=== PATIENT | female | born 1945 | race Hispanic/Latino ===

== ENCOUNTER → 2018-01-06 | Outpatient (CLI) | payer OTHER ==
[~2018-01-06] VITALS: Ht 152.4 cm; Wt 72.6 kg
[~2018-01-06] MED LIST: ACET1TAB25 PO; ALEN70TA47 PO; ASCO500C6 PO; ASPI-1197 PO; ATOR40TA71 PO; CYAN500 PO; CYCL30DR OU; DILT120T PO; FISH1CAP27 PO; FURO20TA4 PO; GABA-318 PO; HYDR12.530 PO; LOSA25TA21 PO; LOTE10DR OP; METF500T6 PO; METO25TA6 PO; MULT-1192 PO; NAPH15DR8 OU; NEO/5DRO4 OU; NITR0.4T50 SL; OMEG100T PO; OMEP20CA10 PO; REGADENOSON 0.4 MG/5 ML PF SYG IVP SCH; SOLI10TA PO
== END | disposition home or self-care (01) ==
LOC: SHCH 08:21
PROVIDERS: ATTEND Internal Medicine Cardiovascular Disease
DX: I25.10 Atherosclerotic heart disease of native coronary artery without angina pectoris (principal); R06.00 Dyspnea, unspecified
CPT/HCPCS: 78452; 93017; 96374; A9500 ×2; J2785

== ENCOUNTER 2018-02-27 05:58 | Day surgery (SDC) | payer OTHER ==
[2018-02-25 09:30] VITALS: BP 130/79
[2018-02-25 09:44] LABS: BASOPHILS % (AUTO) 0.5 % (0.0-5.0); EOSINOPHILS % (AUTO) 2.7 % (0.0-8.0); HEMATOCRIT 36.6 % (36-48); LYMPHOCYTES % (AUTO) 29.3 % (21.0-51.0); MEAN CORPUSCULAR HEMOGLOBIN 32.1 pg (27.0-33.0); MEAN CORPUSCULAR HGB CONC 34.2 g/dL (32.0-36.0); MEAN CORPUSCULAR VOLUME 93.9 fL (79-99); MONOCYTES % (AUTO) 7.4 % (3.0-13.0); NEUTROPHILS % (AUTO) 60.1 % (40.0-77.0); PLATELET COUNT (AUTO) 176 K/uL (130-400); RED CELL DISTRIBUTION WIDTH 13.7 % (11.0-15.5); WHITE BLOOD COUNT (AUTO) 6.4 K/uL (4.8-10.8)
[2018-02-25 09:49] LABS: APPEARANCE,URINE Clear (CLEAR); BILIRUBIN,URINE Negative (NEGATIVE); COLOR,URINE Dark Yellow (YELLOW); GLUCOSE, URINE (UA) Negative (NEGATIVE); KETONES,URINE Negative (NEGATIVE); LEUKOCYTE ESTERASE ,URINE Small (NEGATIVE); NITRATE,URINE Negative (NEGATIVE); OCCULT BLOOD,URINE Negative (NEGATIVE); PH,URINE 7.5 (5.0-8.0); PROTEIN,URINE Negative (NEGATIVE)
[2018-02-25 09:59] LABS: BACTERIA,URINE Rare /HPF (None Seen); SQUAMOUS EPITHELIAL CELL,UR Rare /HPF (0-2)
[2018-02-25 10:02] LABS: CREATININE 0.7 mg/dL (0.5-1.5); POTASSIUM 4.1 mmol/L (3.5-5.1)
[2018-02-25 10:08] LABS: INR 0.98 (0.85-1.15); PROTHROMBIN TIME 10.3 SEC (9.6-11.6)
[2018-02-27] VITALS (11 sets, daily range): BP systolic 93–142; BP diastolic 64–80
[~2018-02-27] VITALS: Ht 152.4 cm; Wt 70.7 kg
[~2018-02-27 05:58] MED LIST changes: -ACET1TAB25 PO; -HYDR12.530 PO; -LOTE10DR OP; -NAPH15DR8 OU; -NEO/5DRO4 OU; -NITR0.4T50 SL; -OMEG100T PO; -REGADENOSON 0.4 MG/5 ML PF SYG IVP SCH; -SOLI10TA PO
[2018-02-27] MEDS ORDERED: BIVALIRUDIN 250 MG/VIAL IV ONE (08:44)
[2018-02-27] MEDS ORDERED: LIDOCAINE HCL 2% 20ML ONE (08:45)
[2018-02-27] MEDS ORDERED: ISOVUE-370 50ML VIAL IV ONE (08:45)
[2018-02-27] MEDS ORDERED: HEPARIN SODIUM 1000UNIT/ML 10ML VIAL ONE (08:45)
[2018-02-27] MEDS ORDERED: IOPAMIDOL-370 100 ML VIAL IV ONE (08:45)
[2018-02-27] MEDS ORDERED: NITROGLYCERIN 5 MG/ML 10 ML VIAL IV ONE (08:45)
[2018-02-27] MEDS ORDERED: SODIUM CHLORIDE 0.9% 1000ML 1,000 ML IV SCH (10:01)
[2018-02-27] MEDS ORDERED: GLUCAGON 1MG KIT 1 MG ML IM PRN (10:15)
[2018-02-27] MEDS ORDERED: DEXTROSE 50%-WATER 50 ML DISP.SYRIN IV PRN (10:15)
== END 2018-02-27 16:15 | disposition home or self-care (01) ==
LOC: DAH 05:58
PROVIDERS: ATTEND Internal Medicine Cardiovascular Disease
DX: I25.10 Atherosclerotic heart disease of native coronary artery without angina pectoris (principal); M81.0 Age-related osteoporosis without current pathological fracture; I11.0 Hypertensive heart disease with heart failure; I50.32 Chronic diastolic (congestive) heart failure; E11.9 Type 2 diabetes mellitus without complications; E78.00 Pure hypercholesterolemia, unspecified; Z79.899 Other long term (current) drug therapy; Z90.710 Acquired absence of both cervix and uterus; Z98.890 Other specified postprocedural states; Z79.82 Long term (current) use of aspirin
CPT/HCPCS: 36415; 71045; 80048; 81001; 82948 ×2; 85025; 85610; 85730; 93005; 93458; A4606; C1760; C1894; J1644; J3490 ×2; Q9967 ×2; J0583

== ENCOUNTER 2019-02-26 09:03 | Day surgery (SDC) | payer OTHER ==
[2019-02-23 14:50] LABS: BASOPHILS % (AUTO) 0.7 % (0.0-5.0); EOSINOPHILS % (AUTO) 2.9 % (0.0-8.0); HEMATOCRIT 41.1 % (36-48); LYMPHOCYTES % (AUTO) 29.8 % (21.0-51.0); MEAN CORPUSCULAR HEMOGLOBIN 32.3 pg (27.0-33.0); MEAN CORPUSCULAR HGB CONC 33.6 g/dL (32.0-36.0); MEAN CORPUSCULAR VOLUME 96.1 fL (79-99); MONOCYTES % (AUTO) 7.4 % (3.0-13.0); NEUTROPHILS % (AUTO) 59.2 % (40.0-77.0); PLATELET COUNT (AUTO) 224 K/uL (130-400); RED BLOOD CELL COUNT(AUTO) 4.28 MIL/uL (4.00-5.50); RED CELL DISTRIBUTION WIDTH 13.9 % (11.0-15.5)
[2019-02-23 14:58] LABS: CREATININE 0.6 mg/dL (0.5-1.5); POTASSIUM 3.9 mmol/L (3.5-5.1)
[2019-02-23 15:00] VITALS: BP 138/90
[2019-02-23 15:13] LABS: APPEARANCE,URINE Clear (CLEAR); BILIRUBIN,URINE Negative (NEGATIVE); COLOR,URINE Yellow (YELLOW); GLUCOSE, URINE (UA) Negative (NEGATIVE); KETONES,URINE Negative (NEGATIVE); LEUKOCYTE ESTERASE ,URINE Trace (NEGATIVE); NITRATE,URINE Negative (NEGATIVE); OCCULT BLOOD,URINE Negative (NEGATIVE); PROTEIN,URINE Negative (NEGATIVE)
[2019-02-23 15:31] LABS: BACTERIA,URINE Few /HPF (None Seen); RBC,URINE 0-1 /HPF (0-1)
[2019-02-23 15:32] LABS: SQUAMOUS EPITHELIAL CELL,UR Few /HPF (0-2)
[2019-02-23 15:33] LABS: MUCUS,URINE Rare LPF (None Seen)
--- NOTE | 2019-02-23 15:50 | NUR ---
REPORTED ABNORMAL EKG TO DR. GIBBONS. NO NEW ORDERS OK TO PROCEED. PT HAS NO SIGNS OF SOB OR CHEST PAIN.
--- NOTE | 2019-02-25 11:24 | NUR ---
MED ORDER: SPOKE TO RAVIN AT DR. HOLLIDAY OFFICE, (NURSE OUT TO LUNCH) TO GIVE MESSAGE TO GIANFRANCO KEITH OR DR. STALEY OF BOTOX ORDER NEEDED ON PRE-OP ORDERS AND TO BE FAX TO [phone]. AWAITING ORDERS.
--- NOTE | 2019-02-25 11:31 | NUR ---
CONSULT: LEFT MESSAGE ON CELL PHONE REGARDING BOTOX ORDER PRE-OP. AWAITING CALL RETURN.
--- NOTE | 2019-02-25 12:01 | NUR ---
URINE CULTURE: FAXED UA AND UA C&S TO , FINGERS OFFICE. AWAITING CALL BACK.
--- NOTE | 2019-02-25 14:00 | NUR ---
labs as per Kourtney , Dr. Verduzco gave no further orders on urine reported earlier today.
[~2019-02-26] VITALS: Ht 152.4 cm; Wt 68.2 kg
[2019-02-26] VITALS (13 sets, daily range): BP systolic 102–127; BP diastolic 62–83
[2019-02-26] MEDS: CEFTRIAXONE SODIUM 1 GM IVP SCH ×2 (06:00→12:25)
[~2019-02-26 09:03] MED LIST changes: +ALEN70TA10 PO; -ALEN70TA47 PO; -ASCO500C6 PO; +BOTULINUM TOXIN TYPE A 100 UNITS/VIAL INJ SCH; +CALC600T12 PO; +CHOL100018 PO; -CYAN500 PO; -CYCL30DR OU; -FURO20TA4 PO; -GABA-318 PO; +GABA600T10 PO; +JOINT VITAMIN PO; -LOSA25TA21 PO; +METF-444 PO; -METF500T6 PO; -METO25TA6 PO; -MULT-1192 PO; +NITR0.4T50 SL; -OMEP20CA10 PO
[2019-02-26] MEDS ORDERED: SODIUM CHLORIDE 0.9% 1000ML 1,000 ML IV ONE (09:28)
[2019-02-26] MEDS ORDERED: LIDOCAINE PF 2% 5ML ABBOJECT ONE (12:14)
[2019-02-26] MEDS ORDERED: PROPOFOL 10 MG/ML 20ML VIAL IV ONE (12:14)
[2019-02-26] MEDS ORDERED: FENTANYL CITRATE PF 50 MCG/1 ML 2ML VIAL ONE (12:14)
[2019-02-26] MEDS ORDERED: EPHEDRINE SULFATE 50 MG/ML AMPULE ONE (12:35)
--- NOTE | 2019-02-26 13:55 | NUR ---
NEW RECEIVED PT FROM PACU, S/P CYSTOSCOPY WITH BOTOX INJECTIONS, PT AWAKE AND ALERT ,NO DISTRESS NOTED. DENIES ANY PAIN OR DISCOMFORTS.
--- NOTE | 2019-02-26 14:20 | NUR ---
DC DC INSTRUCTIONS GIVEN TO PT / DAUGHTER WITH RX, INSTRUCTED TO F/U WITH DR. STALEY.
--- NOTE | 2019-02-26 14:30 | NUR ---
DC PT DC HOME VIA WC ,NO DISTRESS NOTED. DENIES ANY PAIN OR DISCOMFORTS. ACCOMPANIED BY DAUGHTER
== END 2019-02-26 14:30 | disposition home or self-care (01) ==
LOC: DAH 09:03
PROVIDERS: ATTEND Urology
DX: N39.46 Mixed incontinence (principal); E11.9 Type 2 diabetes mellitus without complications; Z79.899 Other long term (current) drug therapy; Z98.890 Other specified postprocedural states
CPT/HCPCS: 36415; 52287; 80048; 81001; 82948 ×2; 85025; 87088; 93005; A4215; A4358; A4600; J0585; J0696; J2001; J2704; J3010; J3490; J7030; J7120

== ENCOUNTER 2019-03-27 20:34 | Emergency (ER) | payer OTHER ==
[~2019-03-27 20:34] MED LIST changes: -BOTULINUM TOXIN TYPE A 100 UNITS/VIAL INJ SCH
[2019-03-27] MEDS ORDERED: TETANUS/DIPHTHERIA TOXOID [ADULT] 0.5 ML VIAL IM ONE (21:18)
[2019-03-27] MEDS ORDERED: OCTYL 2-CYANOACRYLATE 1 EACH TP ONE (21:22)
[2019-03-27 21:25] LABS: EOSINOPHILS % (AUTO) 4.6 % (0.0-8.0); HEMATOCRIT 39.6 % (36-48); LYMPHOCYTES % (AUTO) 38.2 % (21.0-51.0); MEAN CORPUSCULAR HEMOGLOBIN 32.6 pg (27.0-33.0); MEAN CORPUSCULAR HGB CONC 34.2 g/dL (32.0-36.0); MEAN CORPUSCULAR VOLUME 95.1 fL (79-99); MONOCYTES % (AUTO) 8.7 % (3.0-13.0); NEUTROPHILS % (AUTO) 47.5 % (40.0-77.0); NUCLEATED RED BLOOD CELLS 0.1 % (0.0-0.19); PLATELET COUNT (AUTO) 162 K/uL (130-400); RED BLOOD CELL COUNT(AUTO) 4.16 MIL/uL (4.00-5.50); RED CELL DISTRIBUTION WIDTH 13.6 % (11.0-15.5); WHITE BLOOD COUNT (AUTO) 4.3 K/uL (4.8-10.8)
[2019-03-27 21:36] LABS: CREATININE 0.7 mg/dL (0.5-1.5); POTASSIUM 4.3 mmol/L (3.5-5.1)
[2019-03-27 21:38] LABS: INR 0.99 (0.85-1.15); PARTIAL THROMBOPLASTIN TIME 27.3 SEC (26.3-35.5); PROTHROMBIN TIME 10.4 SEC (9.6-11.6)
[2019-03-27 21:41] LABS: ALBUMIN 3.9 g/dL (3.5-5.0); BILIRUBIN,TOTAL 1.1 mg/dL (0.2-1.0)
[2019-03-27 22:12] LABS: APPEARANCE,URINE Clear (CLEAR); BILIRUBIN,URINE Negative (NEGATIVE); COLOR,URINE Yellow (YELLOW); GLUCOSE, URINE (UA) Negative (NEGATIVE); KETONES,URINE Negative (NEGATIVE); LEUKOCYTE ESTERASE ,URINE Moderate (NEGATIVE); NITRATE,URINE Positive (NEGATIVE); OCCULT BLOOD,URINE Negative (NEGATIVE); PH,URINE 7.5 (5.0-8.0); PROTEIN,URINE Negative (NEGATIVE); UROBILINOGEN,URINE 0.2 mg/dL (0.2-1.0)
[2019-03-27 22:41] LABS: BACTERIA,URINE Many /HPF (None Seen); RBC,URINE 0-1 /HPF (0-1); SQUAMOUS EPITHELIAL CELL,UR 0-2 /HPF (0-2)
== END 2019-03-28 00:05 | disposition home or self-care (01) ==
LOC: EDH 20:34
DX: S01.112A Laceration without foreign body of left eyelid and periocular area, initial encounter (principal); M54.2 Cervicalgia; E11.9 Type 2 diabetes mellitus without complications; I10 Essential (primary) hypertension; E78.00 Pure hypercholesterolemia, unspecified; M81.0 Age-related osteoporosis without current pathological fracture; W18.39XA Other fall on same level, initial encounter; Y93.01 Activity, walking, marching and hiking; Y92.89 Other specified places as the place of occurrence of the external cause; Y99.8 Other external cause status
CPT/HCPCS: 12011; 36415; 70450; 70486; 71045; 72125; 80053; 81001; 82550; 84484; 85025; 85610; 85730; 90471; 90714; 93005

== ENCOUNTER → 2019-09-22 | Outpatient (CLI) | payer OTHER ==
[~2019-09-22] MED LIST changes: +IOHEXOL-350 50ML VIAL IV ONE
== END | disposition home or self-care (01) ==
LOC: RAH 08:09
PROVIDERS: ATTEND Internal Medicine Gastroenterology
DX: K42.9 Umbilical hernia without obstruction or gangrene (principal); I87.8 Other specified disorders of veins; I70.0 Atherosclerosis of aorta; I25.10 Atherosclerotic heart disease of native coronary artery without angina pectoris; I51.7 Cardiomegaly; M43.17 Spondylolisthesis, lumbosacral region; M47.815 Spondylosis without myelopathy or radiculopathy, thoracolumbar region; M41.86 Other forms of scoliosis, lumbar region; Z90.49 Acquired absence of other specified parts of digestive tract; Z90.710 Acquired absence of both cervix and uterus
CPT/HCPCS: 74178; Q9967 ×2

== ENCOUNTER → 2019-11-02 | Outpatient (CLI) | payer OTHER ==
[~2019-11-02] MED LIST changes: -IOHEXOL-350 50ML VIAL IV ONE
== END | disposition home or self-care (01) ==
LOC: RAH 13:23
PROVIDERS: ATTEND Family Medicine
DX: Z12.31 Encounter for screening mammogram for malignant neoplasm of breast (principal)
CPT/HCPCS: 77067

== ENCOUNTER → 2020-11-23 | Outpatient (CLI) | payer OTHER ==
[~2020-11-23] MED LIST changes: -ALEN70TA10 PO; +ALEN70TA80 PO; -CALC600T12 PO; +CALC600T15 PO
== END | disposition home or self-care (01) ==
LOC: RAH 15:46
PROVIDERS: ATTEND Family Medicine
DX: Z12.31 Encounter for screening mammogram for malignant neoplasm of breast (principal); N64.89 Other specified disorders of breast
CPT/HCPCS: 77067

== ENCOUNTER 2020-12-18 21:15 | Inpatient (IN) | payer OTHER ==
[~2020-12-18] VITALS: Ht 152.4 cm; Wt 65.8 kg
[~2020-12-18 21:15] MED LIST changes: +CALC-1125 PO; -CALC600T15 PO
[2020-12-18 21:45] LABS: APPEARANCE,URINE Cloudy (CLEAR); BILIRUBIN,URINE Negative (NEGATIVE); COLOR,URINE Yellow (YELLOW); GLUCOSE, URINE (UA) Negative (NEGATIVE); KETONES,URINE Negative (NEGATIVE); LEUKOCYTE ESTERASE ,URINE Moderate (NEGATIVE); NITRATE,URINE Negative (NEGATIVE); OCCULT BLOOD,URINE Negative (NEGATIVE); PH,URINE 6.5 (5.0-8.0); PROTEIN,URINE POS 2+ mg/dL (NEGATIVE); UROBILINOGEN,URINE 0.2 mg/dL (0.2-1.0)
[2020-12-18] MEDS ORDERED: DILTIAZEM 50MG VIAL IV ONE (22:06)
[2020-12-18 22:21] LABS: BACTERIA,URINE Moderate /HPF (None Seen); RBC,URINE 0-1 /HPF (0-1)
[2020-12-18 22:22] LABS: SQUAMOUS EPITHELIAL CELL,UR Few /HPF (0-2)
[2020-12-18 22:27] LABS: BASOPHILS % (AUTO) 0.3 % (0.0-5.0); EOSINOPHILS % (AUTO) 1.1 % (0.0-8.0); HEMATOCRIT 46.1 % (36-48); LYMPHOCYTES % (AUTO) 16.7 % (21.0-51.0); MEAN CORPUSCULAR HEMOGLOBIN 31.1 pg (27.0-33.0); MEAN CORPUSCULAR VOLUME 94.5 fL (79-99); MONOCYTES % (AUTO) 6.2 % (3.0-13.0); NEUTROPHILS % (AUTO) 75.2 % (40.0-77.0); PLATELET COUNT (AUTO) 226 K/uL (130-400); RED BLOOD CELL COUNT(AUTO) 4.88 MIL/uL (4.00-5.50); RED CELL DISTRIBUTION WIDTH 12.9 % (11.0-15.5); WHITE BLOOD COUNT (AUTO) 12.3 K/uL (4.8-10.8)
[2020-12-18 22:47] LABS: CREATININE 0.7 mg/dL (0.5-1.5); POTASSIUM 3.6 mmol/L (3.5-5.1)
[2020-12-18] MEDS ORDERED: CEFTRIAXONE 1G VIAL ONE (22:47)
[2020-12-18 22:52] LABS: ALBUMIN 3.9 g/dL (3.5-5.0); BILIRUBIN,TOTAL 0.9 mg/dL (0.2-1.0)
[2020-12-18 22:53] LABS: PROTHROMBIN TIME 10.9 SEC (9.6-11.6)
[2020-12-18 22:54] LABS: PARTIAL THROMBOPLASTIN TIME 26.7 SEC (26.3-35.5)
[2020-12-19] MEDS ORDERED: ACETAMINOPHEN WITH CODEINE 1 TAB TAB PO PRN (00:15)
[2020-12-19] MEDS: METOPROLOL TARTRATE 25 MG TAB PO SCH ×4 (00:15→20:51)
[2020-12-19] MEDS: LACTULOSE 20 GM/30 ML UDCUP PO SCH (00:15)
[2020-12-19] MEDS: CEFTRIAXONE 1G VIAL IV SCH ×3 (00:15→20:51)
[2020-12-19] MEDS: 0.9%NACL 1000ML 1,000 ML IV SCH ×3 (00:15→20:51)
[2020-12-19] MEDS ORDERED: LACTULOSE 20 GM/30 ML UDCUP PO PRN (00:15)
[2020-12-19] MEDS ORDERED: ONDANSETRON 4MG INJ IV PRN (00:15)
[2020-12-19] MEDS ORDERED: METOPROLOL TARTRATE 25 MG TAB ONE (00:17)
[2020-12-19 01:00] LABS: CREATINE KINASE, TOTAL 100 U/L (21-232); MYOGLOBIN 30 ng/mL (10-92); TROPONIN I < 0.04 ng/mL (0.00-0.06)
[2020-12-19 06:20] VITALS: BP 147/68
[2020-12-19] MEDS: INSULIN HUMULIN R 100 UNIT/ML 3ML SQ SCH ×4 (06:46→20:51)
[2020-12-19 07:00] VITALS: BP 130/78
[2020-12-19 08:45] LABS: CREATINE KINASE, TOTAL 78 U/L (21-232); MYOGLOBIN 44 ng/mL (10-92); TROPONIN I < 0.04 ng/mL (0.00-0.06)
[2020-12-19] MEDS: ENOXAPARIN SODIUM 40 MG/0.4 ML SYRINGE SQ SCH (09:26)
[2020-12-19] MEDS: FAMOTIDINE 20MG VIAL IV SCH ×2 (09:26→20:51)
[2020-12-19 11:00] VITALS: BP 121/80
[2020-12-19] MEDS ORDERED: IBUPROFEN 600 MG TABLET PO PRN (15:00)
[2020-12-19 15:59] LABS: HEMOGLOBIN A1C 6.3 % (4.0-6.0)
[2020-12-19 16:00] VITALS: BP 131/90
[2020-12-19 16:09] LABS: CREATINE KINASE, TOTAL 77 U/L (21-232); MYOGLOBIN 35 ng/mL (10-92); TROPONIN I < 0.04 ng/mL (0.00-0.06)
[2020-12-19] MEDS: ACETAMINOPHEN WITH CODEINE 1 TAB TAB PO PRN (18:40)
[2020-12-19 19:15] VITALS: BP 128/87
[2020-12-19 23:34] VITALS: BP 124/92
[2020-12-20] VITALS (7 sets, daily range): BP systolic 13–151; BP diastolic 77–109
[2020-12-20] MEDS: LACTULOSE 20 GM/30 ML UDCUP PO SCH ×2 (00:55→22:49)
[2020-12-20] MEDS: ACETAMINOPHEN WITH CODEINE 1 TAB TAB PO PRN (02:08)
[2020-12-20 04:51] LABS: BASOPHILS % (AUTO) 0.4 % (0.0-5.0); EOSINOPHILS % (AUTO) 2.7 % (0.0-8.0); HEMATOCRIT 38.9 % (36-48); LYMPHOCYTES % (AUTO) 27.8 % (21.0-51.0); MEAN CORPUSCULAR HEMOGLOBIN 32.5 pg (27.0-33.0); MEAN CORPUSCULAR HGB CONC 34.4 g/dL (32.0-36.0); MEAN CORPUSCULAR VOLUME 94.4 fL (79-99); NEUTROPHILS % (AUTO) 61.7 % (40.0-77.0); PLATELET COUNT (AUTO) 187 K/uL (130-400); RED BLOOD CELL COUNT(AUTO) 4.12 MIL/uL (4.00-5.50); RED CELL DISTRIBUTION WIDTH 13.1 % (11.0-15.5); WHITE BLOOD COUNT (AUTO) 7.1 K/uL (4.8-10.8)
[2020-12-20 04:55] LABS: CREATININE 0.7 mg/dL (0.5-1.5); POTASSIUM 3.5 mmol/L (3.5-5.1)
[2020-12-20] MEDS: 0.9%NACL 1000ML 1,000 ML IV SCH ×2 (05:54→14:32)
[2020-12-20] MEDS: INSULIN HUMULIN R 100 UNIT/ML 3ML SQ SCH ×4 (05:55→20:21)
[2020-12-20 06:02] LABS: ERYTHROCYTE SEDIMENTATION RATE 15 MM/HR (0-30)
[2020-12-20] MEDS: FAMOTIDINE 20MG VIAL IV SCH ×2 (08:21→20:19)
[2020-12-20] MEDS: METOPROLOL TARTRATE 25 MG TAB PO SCH ×3 (08:21→20:18)
[2020-12-20] MEDS: CEFTRIAXONE 1G VIAL IV SCH ×2 (08:22→20:18)
[2020-12-20] MEDS: ENOXAPARIN SODIUM 40 MG/0.4 ML SYRINGE SQ SCH (08:23)
[2020-12-20] MEDS: PSYLLIUM SEED 1 EACH PACKET PO SCH (08:23)
[2020-12-20] MEDS ORDERED: OMEP40CA21 PO (11:20)
[2020-12-20] MEDS ORDERED: VITA100C26 PO (11:20)
[2020-12-20] MEDS ORDERED: GABA600T10 PO ×2 (11:20)
[2020-12-20] MEDS ORDERED: ASCO100T12 PO (11:20)
[2020-12-20] MEDS ORDERED: NON-FORMULARY MEDICATION 1 EACH (Diltiazem HCl 120 MG) PO SCH (11:30)
[2020-12-20] MEDS: DILTIAZEM 120MG SR CAP PO SCH (12:16)
[2020-12-20] MEDS ORDERED: FISH OIL 1000 MG/CAP PO SCH (21:00)
[2020-12-20] MEDS ORDERED: GABAPENTIN 300 MG CAPSULE PO SCH (21:00)
[2020-12-20] MEDS ORDERED: ATORVASTATIN 40 MG TABLET PO SCH (21:00)
[2020-12-21] MEDS: 0.9%NACL 1000ML 1,000 ML IV SCH ×2 (03:09→13:04)
[2020-12-21 03:34] VITALS: BP 117/80
[2020-12-21] MEDS: ACETAMINOPHEN WITH CODEINE 1 TAB TAB PO PRN (06:02)
[2020-12-21] MEDS: INSULIN HUMULIN R 100 UNIT/ML 3ML SQ SCH ×3 (06:03→16:30)
[2020-12-21] MEDS ORDERED: ALENDRONATE SODIUM 35 MG TAB PO SCH (07:30)
[2020-12-21 08:05] VITALS: BP 133/86
[2020-12-21] MEDS: FAMOTIDINE 20MG VIAL IV SCH (08:07)
[2020-12-21] MEDS: DILTIAZEM 120MG SR CAP PO SCH (08:08)
[2020-12-21] MEDS: PSYLLIUM SEED 1 EACH PACKET PO SCH (08:09)
[2020-12-21] MEDS: ENOXAPARIN SODIUM 40 MG/0.4 ML SYRINGE SQ SCH (08:10)
[2020-12-21] MEDS: CEFTRIAXONE 1G VIAL IV SCH (08:28)
[2020-12-21] MEDS: METOPROLOL TARTRATE 25 MG TAB PO SCH ×2 (08:28→14:00)
[2020-12-21] MEDS ORDERED: VITAMIN E 400 UNIT CAPSULE PO SCH (09:00)
[2020-12-21] MEDS ORDERED: GABAPENTIN 300 MG CAPSULE PO SCH (09:00)
[2020-12-21] MEDS ORDERED: PANTOPRAZOLE 40 MG TAB DR PO SCH (09:00)
[2020-12-21] MEDS ORDERED: ASPIRIN 81MG CHEW TAB PO SCH (09:00)
[2020-12-21] MEDS ORDERED: ***HM*** (Cholecalciferol (Vitamin D3) (Vitamin D3) 1,000 UNIT) PO SCH (09:00)
[2020-12-21] MEDS ORDERED: ASCORBIC ACID 100 MG PO SCH (09:00)
[2020-12-21] MEDS ORDERED: CEPH500B PO (10:32)
[2020-12-21 12:00] VITALS: BP 100/73
[2020-12-21] MEDS ORDERED: METO25 PO (14:56)
[2020-12-21 17:21] VITALS: BP 120/73
[2020-12-22] MEDS ORDERED: VITAMIN E 400 UNIT CAPSULE PO SCH (09:00)
== END 2020-12-21 18:20 | disposition home or self-care (01) | DRG 690 ==
LOC: EDH 21:15 → OBSVTOIN 12-19 00:03 → EDHIP 12-19 00:03 → 4BH 12-19 03:45
PROVIDERS: ADMIT Internal Medicine; ATTEND Internal Medicine
DX: N39.0 Urinary tract infection, site not specified (principal); I48.92 Unspecified atrial flutter; I48.91 Unspecified atrial fibrillation; M54.30 Sciatica, unspecified side; E11.9 Type 2 diabetes mellitus without complications; I11.9 Hypertensive heart disease without heart failure; E78.5 Hyperlipidemia, unspecified; I25.10 Atherosclerotic heart disease of native coronary artery without angina pectoris; K59.00 Constipation, unspecified; M81.0 Age-related osteoporosis without current pathological fracture; B96.20 Unspecified Escherichia coli [E. coli] as the cause of diseases classified elsewhere; M41.9 Scoliosis, unspecified; M47.815 Spondylosis without myelopathy or radiculopathy, thoracolumbar region; Z83.3 Family history of diabetes mellitus; Z79.899 Other long term (current) drug therapy; Z90.710 Acquired absence of both cervix and uterus; Z90.49 Acquired absence of other specified parts of digestive tract
CPT/HCPCS: 36415; 71045; 74176; 80048; 80053; 81001; 82550; 82948; 83036; 83605; 83690; 83874; 84145; 84484; 85025; 85610; 85651; 85730; 87077; 87088; 87186; 93005; 99291; G0378; J0696; J1650; J3490; J7030

== ENCOUNTER → 2021-02-17 | Outpatient (CLI) | payer OTHER ==
[~2021-02-17] MED LIST changes: +ASCO100T12 PO; -CALC-1125 PO; +CEPH500B PO; -JOINT VITAMIN PO; -METF-444 PO; +METO25 PO; -NITR0.4T50 SL; +OMEP40CA13 PO; +VITA100C26 PO
== END | disposition home or self-care (01) ==
LOC: SHCH 11:33
PROVIDERS: ATTEND Internal Medicine Cardiovascular Disease
DX: I48.0 Paroxysmal atrial fibrillation (principal); R94.31 Abnormal electrocardiogram [ECG] [EKG]
CPT/HCPCS: 93306; 93356

== ENCOUNTER → 2021-10-19 | Outpatient (CLI) | payer OTHER ==
[~2021-10-19] MED LIST changes: -OMEP40CA13 PO; +OMEP40CA21 PO
== END | disposition home or self-care (01) ==
LOC: RAH 11:50
PROVIDERS: ATTEND Internal Medicine Cardiovascular Disease
DX: R06.09 Other forms of dyspnea (principal)
CPT/HCPCS: 71046

== ENCOUNTER → 2022-03-05 | Outpatient (CLI) | payer OTHER ==
[~2022-03-05] MED LIST changes: +AMIO200T44 PO; +APIX5TAB PO; +ASCO500C18 PO; +BIVALIRUDIN 250 MG/VIAL IV ONE; +CYCL30DR OP; +FURO20TA4 PO; +LIDOCAINE HCL 400MG/20ML VIAL ONE; +MIRT-22 PO; +OMEP20TA20 PO; +ONDA4TAB10 PO; +TRAM100T40 PO; +VITA400C79 PO; +[UNRECOGNIZED DRUG - OTHER] PO; +potassium PO; +vitamin b12 PO
[2022-03-05 10:22] LABS: BASOPHILS % (AUTO) 0.3 % (0.0-5.0); EOSINOPHILS % (AUTO) 1.8 % (0.0-8.0); HEMATOCRIT 43.7 % (36-48); LYMPHOCYTES % (AUTO) 23.1 % (21.0-51.0); MEAN CORPUSCULAR HEMOGLOBIN 32.4 pg (27.0-33.0); MEAN CORPUSCULAR VOLUME 98.4 fL (79-99); MONOCYTES % (AUTO) 8.1 % (3.0-13.0); NEUTROPHILS % (AUTO) 66.3 % (40.0-77.0); PLATELET COUNT (AUTO) 210 K/uL (130-400); RED BLOOD CELL COUNT(AUTO) 4.44 MIL/uL (4.00-5.50); WHITE BLOOD COUNT (AUTO) 7.2 K/uL (4.8-10.8)
[2022-03-05 10:42] LABS: ALBUMIN 3.6 g/dL (3.5-5.0); CREATININE 0.9 mg/dL (0.5-1.5); POTASSIUM 4.4 mmol/L (3.5-5.1); THYROID STIMULATING HORMONE 7.98 uIU/mL (0.36-3.74); TOTAL PROTEIN, SERUM 7.7 g/dL (6.0-8.3)
== END | disposition home or self-care (01) ==
LOC: CANPRESDC → EDSTATUS 09:00 → DAH 10:00
PROVIDERS: ATTEND Internal Medicine Cardiovascular Disease
DX: Z01.810 Encounter for preprocedural cardiovascular examination (principal); I48.19 Other persistent atrial fibrillation; Z53.8 Procedure and treatment not carried out for other reasons
CPT/HCPCS: 87635; 84443; 80053; 85025; 36415; C9803; J3490; J0583

== ENCOUNTER 2022-03-23 06:20 | Day surgery (SDC) | payer OTHER ==
[2022-03-20 14:46] LABS: BASOPHILS % (AUTO) 0.3 % (0.0-5.0); EOSINOPHILS % (AUTO) 1.8 % (0.0-8.0); HEMATOCRIT 44.4 % (36-48); LYMPHOCYTES % (AUTO) 24.5 % (21.0-51.0); MEAN CORPUSCULAR HEMOGLOBIN 32.2 pg (27.0-33.0); MEAN CORPUSCULAR HGB CONC 32.4 g/dL (32.0-36.0); MEAN CORPUSCULAR VOLUME 99.3 fL (79-99); MONOCYTES % (AUTO) 8.7 % (3.0-13.0); NEUTROPHILS % (AUTO) 64.4 % (40.0-77.0); PLATELET COUNT (AUTO) 232 K/uL (130-400); RED BLOOD CELL COUNT(AUTO) 4.47 MIL/uL (4.00-5.50); RED CELL DISTRIBUTION WIDTH 12.9 % (11.0-15.5); WHITE BLOOD COUNT (AUTO) 7.2 K/uL (4.8-10.8)
[2022-03-20 14:57] LABS: PROTHROMBIN TIME 10.9 SEC (9.6-11.6)
[2022-03-20 14:58] LABS: PARTIAL THROMBOPLASTIN TIME 30.5 SEC (26.3-35.5)
[2022-03-20 15:09] LABS: ALBUMIN 3.5 g/dL (3.5-5.0); BILIRUBIN,TOTAL 0.8 mg/dL (0.2-1.0); CREATININE 1.1 mg/dL (0.5-1.5); POTASSIUM 4.7 mmol/L (3.5-5.1); THYROID STIMULATING HORMONE 5.68 uIU/mL (0.36-3.74); TOTAL PROTEIN, SERUM 7.7 g/dL (6.0-8.3)
[2022-03-22 13:45] VITALS: BP 135/91
[2022-03-23] VITALS (10 sets, daily range): BP systolic 95–120; BP diastolic 64–93
[~2022-03-23] VITALS: Ht 152.4 cm; Wt 68.3 kg
[~2022-03-23 06:20] MED LIST changes: -ASCO100T12 PO; -BIVALIRUDIN 250 MG/VIAL IV ONE; -CEPH500B PO; -CHOL100018 PO; -LIDOCAINE HCL 400MG/20ML VIAL ONE; -METO25 PO; -OMEP40CA21 PO; -VITA100C26 PO
[2022-03-23] MEDS ORDERED: PROPOFOL 10 MG/ML 20ML VIAL IV ONE (07:50)
[2022-03-23] MEDS ORDERED: 0.9%NACL 1000ML 1,000 ML IV SCH (08:00)
== END 2022-03-23 09:30 | disposition home or self-care (01) ==
LOC: DAH 06:20
PROVIDERS: ATTEND Internal Medicine Cardiovascular Disease
DX: I48.21 Permanent atrial fibrillation (principal); I25.2 Old myocardial infarction; I25.10 Atherosclerotic heart disease of native coronary artery without angina pectoris; I10 Essential (primary) hypertension; E11.9 Type 2 diabetes mellitus without complications; E78.00 Pure hypercholesterolemia, unspecified; M81.0 Age-related osteoporosis without current pathological fracture; Z90.710 Acquired absence of both cervix and uterus; Z79.84 Long term (current) use of oral hypoglycemic drugs; Z79.01 Long term (current) use of anticoagulants; Z98.890 Other specified postprocedural states
CPT/HCPCS: 36415; 80053; 82948 ×2; 84443; 85025; 85610; 85730; 87635 ×2; 92960; 93005; A4215; A4216; A4221; A4222; A4223 ×3; A4606; A4663; C9803; J2704

== ENCOUNTER → 2022-05-01 | Outpatient (CLI) | payer OTHER | END | disposition home or self-care (01) | LOC: LAB 09:19 | PROVIDERS: ATTEND Internal Medicine Cardiovascular Disease | DX: I10 Essential (primary) hypertension (principal); I25.119 Atherosclerotic heart disease of native coronary artery with unspecified angina pectoris | CPT/HCPCS: 36415; 83735 ==

== ENCOUNTER → 2022-07-04 | Outpatient (CLI) | payer OTHER ==
[2022-07-04 12:38] LABS: POTASSIUM 4.3 mmol/L (3.5-5.1)
== END | disposition home or self-care (01) ==
LOC: LAB 08:19
PROVIDERS: ATTEND Internal Medicine Cardiovascular Disease
DX: I10 Essential (primary) hypertension (principal); I25.10 Atherosclerotic heart disease of native coronary artery without angina pectoris
CPT/HCPCS: 36415; 80048; 83880

== ENCOUNTER 2022-09-21 08:30 | Emergency (ER) | payer OTHER ==
[~2022-09-21] VITALS: Ht 152.4 cm; Wt 65.8 kg
[2022-09-21 08:35] VITALS: BP 139/79
[2022-09-21] MEDS ORDERED: HYDROCODONE/ACETAMINOPHEN 10/325 MG TAB PO ONE (10:00)
[2022-09-21] MEDS ORDERED: ACET-2079 PO (10:05)
== END 2022-09-21 10:24 | disposition home or self-care (01) ==
LOC: EDH 08:30
DX: S52.502A Unspecified fracture of the lower end of left radius, initial encounter for closed fracture (principal); E11.9 Type 2 diabetes mellitus without complications; E78.00 Pure hypercholesterolemia, unspecified; I10 Essential (primary) hypertension; Z79.899 Other long term (current) drug therapy; Z79.82 Long term (current) use of aspirin; W18.39XA Other fall on same level, initial encounter; Y93.89 Activity, other specified; Y92.89 Other specified places as the place of occurrence of the external cause; Y99.8 Other external cause status
CPT/HCPCS: 29125; 73090; 73110; 73130

== ENCOUNTER 2022-12-03 06:23 | Day surgery (SDC) | payer OTHER ==
[2022-11-29 09:49] LABS: BASOPHILS % (AUTO) 0.4 % (0.0-5.0); EOSINOPHILS % (AUTO) 1.4 % (0.0-8.0); HEMATOCRIT 42.1 % (36-48); MEAN CORPUSCULAR HEMOGLOBIN 31.7 pg (27.0-33.0); MEAN CORPUSCULAR HGB CONC 32.8 g/dL (32.0-36.0); MEAN CORPUSCULAR VOLUME 96.8 fL (79-99); MONOCYTES % (AUTO) 7.7 % (3.0-13.0); NEUTROPHILS % (AUTO) 65.1 % (40.0-77.0); PLATELET COUNT (AUTO) 181 K/uL (130-400); RED BLOOD CELL COUNT(AUTO) 4.35 MIL/uL (4.00-5.50)
[2022-11-29 09:52] VITALS: BP 140/82
[2022-11-29 09:52] LABS: APPEARANCE,URINE CLOUDY (CLEAR); BILIRUBIN,URINE NEGATIVE (NEGATIVE); COLOR,URINE YELLOW (YELLOW); GLUCOSE, URINE (UA) NEGATIVE (NEGATIVE); KETONES,URINE NEGATIVE (NEGATIVE); LEUKOCYTE ESTERASE ,URINE NEGATIVE Leu/uL (NEGATIVE); NITRATE,URINE NEGATIVE (NEGATIVE); OCCULT BLOOD,URINE NEGATIVE (NEGATIVE); PH,URINE 6.5 (5.0-8.0); PROTEIN,URINE 50 mg/dL (NEGATIVE)
[2022-11-29 10:01] LABS: CREATININE 0.9 mg/dL (0.5-1.5); POTASSIUM 4.3 mmol/L (3.5-5.1)
[2022-11-29 10:03] LABS: INR 1.02 (0.85-1.15); PROTHROMBIN TIME 11.1 SEC (9.6-11.6)
[2022-11-29 10:05] LABS: PARTIAL THROMBOPLASTIN TIME 32.5 SEC (26.3-35.5)
[2022-11-29 10:17] LABS: BACTERIA,URINE MANY /HPF (None Seen); MUCUS,URINE MOD LPF (None Seen); SQUAMOUS EPITHELIAL CELL,UR FEW /HPF (0-2)
[2022-11-29 10:28] LABS: B-TYPE NATRIURETIC PEPTIDE 173 pg/mL (0-100)
[~2022-12-03] VITALS: Ht 152.4 cm; Wt 61.1 kg
[2022-12-03] VITALS (11 sets, daily range): BP systolic 93–139; BP diastolic 55–77
[~2022-12-03 06:23] MED LIST changes: +0.9% NACL 500ML IV.SOLN 500 ML IV SCH; +ACET-2247 PO; -ASCO500C18 PO; -CYCL30DR OP; -FURO20TA4 PO; +FURO80TA3 PO; -GABA600T10 PO; +LEVO50CA4 PO; +MAGN400C PO; -MIRT-22 PO; +MULT-1367 PO; +NITR0.4T50 SL; -OMEP20TA20 PO; +OMEP40CA21 PO; +POTA-364 PO; -TRAM100T40 PO; -VITA400C79 PO; -[UNRECOGNIZED DRUG - OTHER] PO; -potassium PO; -vitamin b12 PO
[2022-12-03] MEDS ORDERED: 0.9%NACL 1000ML 1,000 ML IV ONE (07:19)
[2022-12-03] MEDS ORDERED: BIVALIRUDIN 250 MG/VIAL IV ONE (10:41)
[2022-12-03] MEDS ORDERED: SODIUM BICARB 50MEQ 50ML VIAL 50 ML ONE (10:41)
[2022-12-03] MEDS ORDERED: HEPARIN 10,000 UNIT/10ML (1,000 UNIT/ML) VIAL ONE (10:41)
[2022-12-03] MEDS ORDERED: NITROGLYCERIN 50MG VIAL ONE (10:41)
[2022-12-03] MEDS ORDERED: LIDOCAINE HCL 400MG/20ML VIAL ONE (10:42)
[2022-12-03] MEDS ORDERED: MIDAZOLAM HCL 1 MG/ML 2ML VIAL ONE (10:42)
[2022-12-03] MEDS ORDERED: FENTANYL CITRATE PF 50 MCG/1 ML 2ML VIAL ONE (10:42)
[2022-12-03] MEDS ORDERED: IOHEXOL 350 MG/ML 100ML INFUS..BTL IV ONE ×2 (10:42→11:46)
[2022-12-03] MEDS ORDERED: 0.9%NACL 1000ML 1,000 ML IV SCH (12:00)
== END 2022-12-03 18:06 | disposition home or self-care (01) ==
LOC: DAH 06:23
PROVIDERS: ATTEND Internal Medicine Cardiovascular Disease
DX: I25.119 Atherosclerotic heart disease of native coronary artery with unspecified angina pectoris (principal); I50.32 Chronic diastolic (congestive) heart failure; I48.0 Paroxysmal atrial fibrillation; I34.2 Nonrheumatic mitral (valve) stenosis; I25.2 Old myocardial infarction; I48.19 Other persistent atrial fibrillation; I11.0 Hypertensive heart disease with heart failure; E11.9 Type 2 diabetes mellitus without complications; E78.00 Pure hypercholesterolemia, unspecified; M81.0 Age-related osteoporosis without current pathological fracture; Z79.01 Long term (current) use of anticoagulants; Z79.899 Other long term (current) drug therapy; Z79.890 Hormone replacement therapy; Z98.890 Other specified postprocedural states; Z90.710 Acquired absence of both cervix and uterus
CPT/HCPCS: 80048; 83880; 85025; 85610; 85730; 81001; 36415; 71045; 93005; 93460; 82948 ×2; C1894 ×3; C1769; C1760; J3010; J3490 ×3; J7030; J2250; J1644; Q9967; A4215; A4335; A4222; A4221; A4663; A4216; A4606; Q9965; A4223 ×3; A4554; 96360; 96361; 99156; 99157; J0583

== ENCOUNTER 2022-12-18 14:53 | Emergency (ER) | payer OTHER ==
[~2022-12-18] VITALS: Ht 144.8 cm; Wt 59.9 kg
[2022-12-18 15:02] VITALS: BP 152/87
== END 2022-12-18 17:09 | disposition home or self-care (01) ==
LOC: EDH 14:53
DX: S00.83XA Contusion of other part of head, initial encounter (principal); S10.93XA Contusion of unspecified part of neck, initial encounter; I10 Essential (primary) hypertension; E11.9 Type 2 diabetes mellitus without complications; E78.00 Pure hypercholesterolemia, unspecified; I48.91 Unspecified atrial fibrillation; Z79.899 Other long term (current) drug therapy; Z79.82 Long term (current) use of aspirin; Z90.710 Acquired absence of both cervix and uterus; Z98.890 Other specified postprocedural states; W18.39XA Other fall on same level, initial encounter; Y93.89 Activity, other specified; Y92.89 Other specified places as the place of occurrence of the external cause; Y99.8 Other external cause status
CPT/HCPCS: 36415; 70450; 70486; 72125; 80048; 83880

== ENCOUNTER → 2022-12-18 | Outpatient (CLI) | payer OTHER ==
[~2022-12-18] MED LIST changes: -0.9% NACL 500ML IV.SOLN 500 ML IV SCH; -POTA-364 PO; +POTA-79 PO
== END | disposition home or self-care (01) ==
LOC: LAB 13:28
PROVIDERS: ATTEND Internal Medicine Cardiovascular Disease
DX: I10 Essential (primary) hypertension (principal); R42 Dizziness and giddiness
CPT/HCPCS: 36415; 80048; 83880

== ENCOUNTER → 2023-12-06 | Outpatient (CLI) | payer OTHER ==
[2023-12-06 12:17] LABS: CREATININE 0.8 mg/dL (0.5-1.5); POTASSIUM 4.3 mmol/L (3.5-5.1)
== END ==
LOC: LAB 11-18 09:35
PROVIDERS: ATTEND Internal Medicine Cardiovascular Disease
DX: I34.2 Nonrheumatic mitral (valve) stenosis (principal); R42 Dizziness and giddiness
CPT/HCPCS: 36415; 80048; 83880

== ENCOUNTER → 2024-01-27 | Outpatient (CLI) | payer OTHER ==
[~2024-01-27] MED LIST changes: +POTA-364 PO; -POTA-79 PO
[2024-01-27 12:30] LABS: CREATININE 0.7 mg/dL (0.5-1.0); POTASSIUM 4.3 mmol/L (3.5-5.1)
== END | disposition home or self-care (01) ==
LOC: LAB 08:53
PROVIDERS: ATTEND Internal Medicine Cardiovascular Disease
DX: I48.0 Paroxysmal atrial fibrillation (principal); D68.59 Other primary thrombophilia
CPT/HCPCS: 36415; 80048; 83880

== ENCOUNTER → 2024-03-12 | Outpatient (CLI) | payer OTHER ==
[~2024-03-12] MED LIST changes: +ONDA-243 PO; -ONDA4TAB10 PO
== END | disposition home or self-care (01) ==
LOC: RAH 10:00
PROVIDERS: ATTEND Physician Assistant Medical
DX: Z12.31 Encounter for screening mammogram for malignant neoplasm of breast (principal)
CPT/HCPCS: 77067

== ENCOUNTER → 2024-04-27 | Outpatient (CLI) | payer OTHER ==
[2024-04-27 16:59] LABS: CREATININE 0.7 mg/dL (0.5-1.0); MAGNESIUM 1.6 mg/dL (1.80-2.40); POTASSIUM 4.3 mmol/L (3.5-5.1)
== END | disposition home or self-care (01) ==
LOC: LAB 13:53
PROVIDERS: ATTEND Internal Medicine Cardiovascular Disease
DX: I87.2 Venous insufficiency (chronic) (peripheral) (principal); R60.9 Edema, unspecified; R53.1 Weakness
CPT/HCPCS: 36415; 80048; 83735; 83880

== ENCOUNTER → 2024-11-06 | Outpatient (CLI) | payer OTHER ==
[2024-11-06 12:17] LABS: BASOPHILS # (AUTO) 0.03 K/uL (0.00-0.20); BASOPHILS % (AUTO) 0.4 % (0.0-5.0); EOSINOPHILS # (AUTO) 0.25 K/uL (0.00-0.70); EOSINOPHILS % (AUTO) 3.3 % (0.0-8.0); HEMATOCRIT 43.2 % (36-48); IMMATURE GRANULOCYTE ABSOLUTE 0.02 K/uL (0-1); LYMPHOCYTES # (AUTO) 1.8 K/uL (1.0-4.8); LYMPHOCYTES % (AUTO) 22.9 % (21.0-51.0); MEAN CORPUSCULAR HEMOGLOBIN 32.8 pg (27.0-33.0); MEAN CORPUSCULAR HGB CONC 32.6 g/dL (32.0-36.0); MEAN CORPUSCULAR VOLUME 100.5 fL (79-99); MONOCYTES # (AUTO) 0.6 K/uL (0.1-1.0); MONOCYTES % (AUTO) 7.9 % (3.0-13.0); NEUTROPHILS % (AUTO) 65.2 % (40.0-77.0); PLATELET COUNT (AUTO) 226 K/uL (130-400); RED CELL DISTRIBUTION WIDTH 12.6 % (11.0-15.5); WHITE BLOOD COUNT (AUTO) 7.6 K/uL (4.8-10.8)
[2024-11-06 12:32] LABS: ALBUMIN 3.5 g/dL (3.5-5.0); BILIRUBIN,TOTAL 0.9 mg/dL (0.2-1.0); CREATININE 0.6 mg/dL (0.5-1.0); MAGNESIUM 1.6 mg/dL (1.80-2.40); POTASSIUM 4.9 mmol/L (3.5-5.1)
[2024-11-06 12:38] LABS: B-TYPE NATRIURETIC PEPTIDE 195 pg/mL (0-100)
== END | disposition home or self-care (01) ==
LOC: LAB 09:02
PROVIDERS: ATTEND Internal Medicine Cardiovascular Disease
DX: I10 Essential (primary) hypertension (principal); I48.0 Paroxysmal atrial fibrillation; D68.59 Other primary thrombophilia
CPT/HCPCS: 36415; 80053; 83735; 83880; 85025

== ENCOUNTER → 2024-11-19 | Outpatient (CLI) | payer OTHER ==
[2024-11-19 16:36] LABS: CREATININE 0.6 mg/dL (0.5-1.0); POTASSIUM 4.3 mmol/L (3.5-5.1)
== END | disposition home or self-care (01) ==
LOC: LAB 14:35
PROVIDERS: ATTEND Internal Medicine Cardiovascular Disease
DX: I48.0 Paroxysmal atrial fibrillation (principal); E83.42 Hypomagnesemia
CPT/HCPCS: 36415; 80048; 83735; 83880

== ENCOUNTER → 2024-11-19 | Outpatient (CLI) | payer OTHER ==
--- NOTE | 2024-11-23 09:43 | HMCSR ---
APPROVED REPORT EXAM: Two-dimensional and M-mode echocardiogram with Doppler and color Doppler. INDICATION ICD: I48.0 Chronic AF 2D Dimensions RVDd4.1 cmLVEF(%)52.1 (>50%)LVED Vol(simp.)54.0 mL IVSd1.2 (0.7-1.1cm)FS(%)26 %LVES Vol(simp.)28.0 mL LVDd3.9 (3.8-5.6cm)LA (2D)4.6 (1.6-4.0cm)LVEF(%, simp.)47 % PWd1.1 (0.7-1.1cm)Ao Root(2D)3.0 (2.0-3.7cm)LA ESV INDEX (BP)71.63 mL/m2 IVSs1.1 cmLVOT diam1.8 (1.8-2.4cm) LVDs2.8 (2.5-4.0cm) PWs1.6 cm Aortic Valve AoV Vmax1.3 m/Henrik Peak GR6.9 mmHgLVOT Vmax0.9 m/s AoV VTI0.2 mAo Mean GR3.9 mmHgLVOT VTI0.13 m MARIELLE (VMAX)1.7 cm2Al P1/2T786 msAVA (VTI) 1.7 cm2 Mitral Valve MV E Utoi982.9 cm/sDECEL Mzrl779 msMV Peak GR14 mmHg MV A Vmax53.9 cm/sP 1/2 T122 msMV Mean GR8 mmHg E/A ratio3.1MVA (PHT)1.8 cm2 TDI E/E' Tkqrbf26.4 Pulmonary Valve PV Vmax0.6 m/s Tricuspid Valve TR Vmax2.5 m/sRVSP23.9 mmHg TR Peak GR27.2 mmHg Left Ventricle The left ventricle cavity volume is small. There is normal LV segmental wall motion. Mild concentric left ventricular hypertrophy, appears more significant due to small LV volume. 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 LVEF calculation is properly done and measures 47% by biplane tech nique. Visually this appears to underestimate, and this could be due to very large papillary muscles which take up a lot of volume. Tissue doppler is normal. Right Ventricle The right ventricle is normal size. Right ventricular systolic function is borderline reduced. Atria The left atrium is severely dilated.LASVI 72mL/m. The right atrium is borderline dilated. Aortic Valve Aortic valve is trileaflet, mildly thickened and noncoronary leaflet is immobile. Mild aortic regurgi tation present. There is no aortic valvular stenosis. Mitral Valve There is moderate mitral annular calcification. Mitral valve has decreased opening. There is mild estefani ral valve regurgitation noted. There is moderate mitral valve stenosis, with a mean gradient of 7mmHg . MVA PHT 1.8cm Tricuspid Valve The tricuspid valve is normal in structure. There is moderate tricuspid valve regurgitation noted. Pulmonic Valve The pulmonary valve is normal in structure. There is trivial pulmonic valvular regurgitation. Great Vessels The aortic root is normal in size. The IVC is normal in size and collapses >50% with inspiration. Pericardium There is no pericardial effusion. Other Information Quality : Adequate Conclusion LVEF calculation is properly done and measures 47% by biplane technique. Visually this appears to und erestimate, and this could be due to very large papillary muscles which take up a lot of volume. The left ventricle cavity volume is small. Mild concentric left ventricular hypertrophy, appears more significant due to small LV volume. 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 The left atrium is severely dilated. LASVI 72mL/m. Aortic valve is trileaflet, mildly thickened and noncoronary leaflet is immobile. Mild aortic regurgitation present. There is moderate mitral annular calcification. Mitral valve has decreased opening. There is moderate mitral valve stenosis, with a mean gradient of 7mmHg. MVA PHT 1.8cm There is mild mitral valve regurgitation noted. Atrial fibrillation noted
== END | disposition home or self-care (01) ==
LOC: RAH 13:04
PROVIDERS: ATTEND Internal Medicine Cardiovascular Disease
DX: I08.8 Other rheumatic multiple valve diseases (principal); I48.0 Paroxysmal atrial fibrillation; I48.20 Chronic atrial fibrillation, unspecified
CPT/HCPCS: 93306

== ENCOUNTER 2025-01-07 08:42 | Emergency (ER) | payer OTHER ==
[~2025-01-07] VITALS: Ht 152.4 cm; Wt 63.5 kg
[~2025-01-07 08:42] MED LIST changes: -LEVO50CA4 PO; +LEVO50CA5 PO
[2025-01-07 08:43] VITALS: TEMP 98.2
--- NOTE | 2025-01-07 09:55 | ERN ---
General Chief Complaint: Pelvic Pain Stated Complaint: INGUINAL PAIN Time Seen by MD: 08:45 Source: patient History of Present Illness Initial Comments THIS IS A AN 80-YEAR-OLD FEMALE COMING IN TO BE EVALUATED FOR RIGHT INGUINAL PAIN. PATIENT WAS TOLD HE HAD AN INGUINAL HERNIA MANY MONTHS AGO. SHE STATES HE HAS NOT FOLLOW UP WITH THE PCP YET. Allergies: Coded Allergies: No Known Allergies (Unverified Allergy, Unknown, 11/24/15) Home Meds Reported Medications Potassium Chloride (Potassium Chloride) 20 Meq Tablet.er, 20 MEQ PO DAILY, TAB 11/29/22 Levothyroxine Sodium (Levothyroxine) 50 Mcg Capsule, 50 MCG PO ACBKFST, CAP 11/29/22 Nitroglycerin (Nitroglycerin) 0.4 Mg Tab.subl, 0.4 MG SL AD PRN for CHEST PAIN, TAB.SL 11/29/22 Acetaminophen (Tylenol) 325 Mg Tablet, 650 MG PO AD PRN for PAIN, TAB 11/29/22 Multivitamin (Multivitamin) 1 Each Tablet, 1 EACH PO DAILY, TAB 11/29/22 Magnesium Oxide (Magnesium) 400 Mg Capsule, 400 MG PO QODAY, CAP 11/29/22 Omeprazole (Omeprazole) 40 Mg Capsule.dr, 40 MG PO QODAY, CAP 11/29/22 Furosemide (Furosemide) 80 Mg Tablet, 80 MG PO DAILY, TAB 11/29/22 Ondansetron (Ondansetron Odt) 4 Mg Tab.rapdis, 4 MG PO AD PRN for n/v, TAB 03/22/22 Amiodarone HCl (Pacerone) 200 Mg Tablet, 200 MG PO DAILY, TAB 03/22/22 Apixaban (Eliquis) 5 Mg Tablet, 5 MG PO BID, TAB REANUDAR ELIQUIS 12/04/22 03/22/22 [place]-3 Fatty Acids/Fish Oil ([place] 3 1,000 mg Softgel) 1 Each Capsule, 1 EACH PO DAILY, CAP 02/25/18 Aspirin (Aspirin) 81 Mg Tab.chew, 81 MG PO DAILY, TAB.CHEW 11/24/15 Alendronate Sodium (Alendronate Sodium) 70 Mg Tablet, 70 MG PO QWEEK, TAB 11/24/15 Diltiazem HCl (Diltiazem HCl) 120 Mg Tablet, 120 MG PO BID, TAB 11/24/15 Atorvastatin Calcium (Atorvastatin Calcium) 40 Mg Tablet, 40 MG PO HS, TAB 11/24/15 Past Medical History Past Medical History: A-Fib, Arthritis, Diabetes-Type II, High Cholesterol, Hypertension Past Surgical History: Hysterectomy, Other Surgical History Other: BACK, SHOULDER, LT HEART CATH Social History Social History: Negative, Other ROS Dictation CONSTITUTIONAL: NO CHILLS, NO FEVER, NO WEAKNESS, NO DIAPHORESIS, NO MALAISE. HEAD/FACE: NO SIGNS OF TRAUMA. EENT: NO EYE PAIN, NO BLURRED VISION, NO TEARING, NO DOUBLE VISION, NO EAR PAIN, NO EAR DISCHARGE, NO NOSE PAIN, NO NASAL CONGESTION, NO THROAT PAIN, NO THROAT SWELLING, NO MOUTH PAIN. RESPIRATORY: NO COUGH, NO ORTHOPNEA, NO SOB, NO STRIDOR, NO WHEEZING. CARDIOVASCULAR: NO CHEST PAIN, NO EDEMA, NO PALPITATIONS, NO SYNCOPE. GASTROINTESTINAL/ABDOMINAL: NO ABDOMINAL PAIN, NO CONSTIPATION, NO DIARRHEA, NO NAUSEA, NO VOMITING. GENITOURINARY: NO ABNORMAL DISCHARGE, NO DYSURIA, NO FREQUENT URINATION, NO HEMATURIA. COMPLAINTS OF PAIN IN THE GENITALS. MUSCULOSKELETAL: NO BACK PAIN, NO GOUT, NO JOINT PAIN, NO JOINT SWELLING, NO MUSCLE PAIN, NO MUSCLE STIFFNESS, NO NECK PAIN. INTEGUMENTARY: NO CHANGE IN COLOR, NO CHANGE IN HAIR/NAILS, NO DRYNESS, NO LESION, NO LUMPS, NO RASH. NEUROLOGICAL/PSYCH: NO ANXIETY, NOT DEPRESSED, NO EMOTIONAL PROBLEM, NO HEADACHE, NO NUMBNESS, NO PRE-EXISTING DEFICIT, NO HISTORY OF SEIZURES, NO TREMORS, NO WEAKNESS. HEMATOLOGIC/LYMPHATIC: NOT ANEMIC, NO HISTORY OF BLOOD CLOTS, NO APPARENT BLEEDING, NO BRUISING, GLANDS NOT SWOLLEN. ALL SYSTEMS NEGATIVE, EXCEPT NOTED. Physical Exam Physical Exam Dictation VITAL SIGNS: REVIEWED. GENERAL APPEARANCE: ALERT, ORIENTED X3, NO ACUTE DISTRESS, OBESE. HEAD AND FACE: NON-TRAUMATIC. EYES: PERRL, PINK CONJUNCTIVAS, EYELID NO TRAUMA, ANTERIOR CHAMBER CLEAR. EARS: PINNAS INTACT AND NO SIGNS OF TRAUMA OR ERYTHEMA. EAR CANALS CLEAR AND NO DISCHARGE. TMS NO ERYTHEMA. NOSE: NO DISCHARGE, NO BLEEDING. OROPHARYNX: MOUTH NORMAL, TEETH NO CARIES, TONGUE PINK. PHARYNX CLEAR, NO ERYTHEMA. TONSILS NO EXUDATES, NO ABSCESSES NOTED. MUCOUS MEMBRANE MOIST. NECK: SUPPLE, NON-TENDER, NO THYROMEGALY, NO MASSES, NO JVD, NO BRUITS. BREAST: DEFERRED. CHEST: NO TENDERNESS, NO CREPITUS, NO PARADOXICAL MOVEMENT, NO RETRACTIONS. LUNGS: CLEAR, WELL-VENTILATED, SYMMETRIC, NO RALES, NO WHEEZING, NO RHONCHI, NO STRIDOR, GOOD BREATH SOUNDS BILATERALLY. HEART: REGULAR RATE, REGULAR RHYTHM, NO MURMUR, NO GALLOPS. VASCULAR: NO PERIPHERAL EDEMA. ABDOMEN: SOFT, POSITIVE BOWEL SOUNDS, NONDISTENDED, NO GUARDING, NONTENDER, NO REBOUND, NO MASSES NO HEPATOMEGALY, NO SPLENOMEGALY, NO ZUNIGA'S SIGN, NO HERNIAS. RECTAL: DEFERRED. GENITAL: RIGHT INGUINAL DISCOMFORT PALPATION NEUROLOGICAL: NORMAL SPEECH, GROSS MOTOR FUNCTION INTACT, GROSS SENSORY FUNCTION INTACT. MUSCULOSKELETAL: NECK NONTENDER, FULL RANGE OF MOTION, BACK NONTENDER, FULL RANGE OF MOTION. EXTREMITIES: NONTENDER, FULL RANGE OF MOTION. SKIN: COLOR PINK, DRY, NO TURGOR, NO RASH, NO LACERATIONS, NO ABRASIONS, NO CONTUSIONS. LYMPHATICS: DEFERRED. Results Laboratory and Microbiology Lab and Micro Result Laboratory Tests Test 01/07/25 09:53 Urine Color YELLOW (YELLOW) Urine Appearance CLEAR (CLEAR) Urine pH 6.0 (5.0-8.0) Urine Specific [place] 1.023 (1.001-1.031) Urine Protein 100 mg/dL (NEGATIVE) H Urine Glucose (UA) NEGATIVE mg/dL (NEGATIVE) Urine Ketones 5 mg/dL (NEGATIVE) H Urine Occult Blood NEGATIVE (NEGATIVE) Urine Nitrate NEGATIVE (NEGATIVE) Urine Bilirubin NEGATIVE mg/dL (NEGATIVE) Urine Urobilinogen 0.2 mg/dL (0.2-1.0) Urine Leukocyte Esterase NEGATIVE Erick/uL Urine RBC 2-5 /HPF (0-1) H Urine WBC 2-5 /HPF (0-1) H Urine Squamous Epithelial Cells RARE /HPF (0-2) Urine Bacteria None /HPF (None Seen) EKG/XRAY/US/CT/MRI Ultrasound Comment ULTRASOUND RIGHT INGUINAL-INGUINAL HERNIA REDUCIBLE MDM MDM: DIFFERENTIAL DIAGNOSIS: INGUINAL HERNIA, PAIN, RATIONALE: TESTS CONSIDERED AND ORDERED SECONDARY TO SHARED DECISION MAKING INCLUDE: PREVIOUS OUTSIDE RECORDS REVIEWED: OLD ER VISITS. RISK OF COMPLICATION AND/OR MORBIDITY OR MORTALITY OF PATIENT MANAGEMENT: NONE PATIENT IS A AN 80-YEAR-OLD FEMALE COMING IN TO BE EVALUATED FOR RIGHT INGUINAL PAIN. ULTRASOUND DISCLOSE THAT INGUINAL HERNIA WITH PATIENT REDUCIBLE. I ADVISED PATIENT APPROPRIATE FOLLOW UP WITH PCP AND/OR SURGEON FOR APPROPRIATE TREATMENT. ED Course Orders Procedure Category Date Status Time Urinalysis LAB 01/07/25 Complete W/Microscopic 09:32 Us Soft Tissue Groin US 01/07/25 Taken 09:31 Vital Signs Date Time Temp Pulse Resp B/P (MAP) Pulse Ox O2 Delivery O2 Flow Rate FiO2 01/07/25 08:43 98.2 96 16 155/99 97 Room Air DX & DISP Disposition: Discharge Departure Impression: Primary Impression: Inguinal hernia Condition: Stable Additional Instructions: FOLLOW-UP WITH PRIMARY CARE PROVIDER IN 1 TO 2 DAYS. TAKE MEDICATIONS DIRECTED HERE IN THE EMERGENCY ROOM. OKAY TO CONTINUE HOME MEDICATIONS UNLESS OTHERWISE DISCUSSED DURING YOUR VISIT IN THE EMERGENCY ROOM TODAY. RETURN TO YOUR NEAREST EMERGENCY ROOM IF SYMPTOMS WORSEN OR IF THERE IS NO IMPROVEMENT. CALL 911 IF YOU NEED IMMEDIATE ASSISTANCE. TAKE TYLENOL [id number] NEEDED AND IF NO CONTRAINDICATIONS ARE PRESENT. INCREASE ORAL HYDRATION. A WOUND CULTURE OR URINE CULTURE WAS ORDERED HERE IN THE EMERGENCY ROOM DEPARTMENT PLEASE FOLLOW-UP WITH PRIMARY CARE PROVIDER AND ADVISE THEM TO GET REPEAT PORTS FROM OUR FACILITY. IF YOU HAD ANY MICHELLE WRAP/SPLINTS THAT WERE APPLIED HERE, PLEASE DO NOT REMOVE THEM UNTIL YOU SEE YOUR PRIMARY CARE OR SPECIALTY. REFERRALS: Referrals: AYAZ MORELAND (PCP) KEMI MAYNARD MD Time of Disposition: 11:50 ERVIN PEARCE MD Jan 07, 2025 09:55
[2025-01-07 10:09] LABS: APPEARANCE,URINE CLEAR (CLEAR); BILIRUBIN,URINE NEGATIVE (NEGATIVE); COLOR,URINE YELLOW (YELLOW); GLUCOSE, URINE (UA) NEGATIVE (NEGATIVE); KETONES,URINE 5 mg/dL (NEGATIVE); LEUKOCYTE ESTERASE ,URINE NEGATIVE Leu/uL (NEGATIVE); NITRATE,URINE NEGATIVE (NEGATIVE); OCCULT BLOOD,URINE NEGATIVE (NEGATIVE); PROTEIN,URINE 100 mg/dL (NEGATIVE); UROBILINOGEN,URINE 0.2 mg/dL (0.2-1.0)
[2025-01-07 10:17] LABS: MUCUS,URINE RARE LPF (None Seen); SQUAMOUS EPITHELIAL CELL,UR RARE /HPF (0-2)
[2025-01-07 11:57] VITALS: BP 135/65; PULSE 74; RESP 20; O2SAT 97
[2025-01-07] MEDS: traMADol HCL 50 MG TABLET PO ONE (12:09)
--- NOTE | 2025-01-07 12:26 | HMCIMG ---
US SOFT TISSUE GROIN REASON: INGUINAL HERNIA. COMPARISON: None TECHNIQUE: Right groin ultrasound study was performed. FINDINGS: There is right inguinal hernia measuring 3 x 3.5 x 2.5 cm with fat content. IMPRESSION: Right inguinal hernia with fat content.
== END 2025-01-07 12:32 | disposition home or self-care (01) ==
LOC: EDH 08:42
DX: K40.90 Unilateral inguinal hernia, without obstruction or gangrene, not specified as recurrent (principal); E11.9 Type 2 diabetes mellitus without complications; E78.00 Pure hypercholesterolemia, unspecified; I10 Essential (primary) hypertension; I48.91 Unspecified atrial fibrillation; M19.90 Unspecified osteoarthritis, unspecified site; Z79.01 Long term (current) use of anticoagulants; Z79.82 Long term (current) use of aspirin; Z79.899 Other long term (current) drug therapy; Z90.710 Acquired absence of both cervix and uterus; Z98.890 Other specified postprocedural states
CPT/HCPCS: 76882; 81001; 99284

== ENCOUNTER 2025-01-22 12:37 | Emergency (ER) | payer OTHER ==
[~2025-01-22] VITALS: Ht 152.4 cm; Wt 61.2 kg
--- NOTE | 2025-01-22 13:24 | HMCIMG ---
CT HEAD/BRAIN W/O CONTRAST HISTORY: Status post fall COMPARISON: None TECHNIQUE: Multiple sequential axial images of the head were obtained from the base of the skull through vertex. Patient was not given contrast through intravenous route. FINDINGS: The ventricles and extraventricular CSF spaces are dilated consistent with cerebral atrophy. Nonspecific white matter changes seen. There is left frontal lobe arachnoid cyst. There are bilateral petrous apex air cells with right more than left. There is no midline shift, mass effect or herniation. No acute intracranial bleed is seen. Visualized portion of the paranasal sinuses are grossly within normal limits. IMPRESSION: 1. No acute intracranial bleed is seen. 2. Atrophy with white matter changes. CT was performed with one or more following dose reduction techniques: automated exposure control, adjustment of the mA and kv according to patient's size, or use of a iterative reconstruction technique.
[2025-01-22 13:37] LABS: APPEARANCE,URINE CLEAR (CLEAR); BILIRUBIN,URINE NEGATIVE (NEGATIVE); COLOR,URINE COLORLESS (YELLOW); GLUCOSE, URINE (UA) NEGATIVE (NEGATIVE); KETONES,URINE NEGATIVE (NEGATIVE); LEUKOCYTE ESTERASE ,URINE NEGATIVE Leu/uL (NEGATIVE); NITRATE,URINE NEGATIVE (NEGATIVE); OCCULT BLOOD,URINE NEGATIVE (NEGATIVE); PROTEIN,URINE 10 mg/dL (NEGATIVE); UROBILINOGEN,URINE 0.2 mg/dL (0.2-1.0)
[2025-01-22 13:38] LABS: ADD UA MICROSCOPIC YES
--- NOTE | 2025-01-22 13:46 | ERN ---
General Chief Complaint: Mechanical Fall Stated Complaint: FALL Time Seen by MD: 12:39 Source: patient History of Present Illness Initial Comments pt is a 80-year-old female coming in to be evaluated after she had a fall. She states that she fell earlier today while reaching for the remote control states he lost her balance fell for. Family members was witnessed the fall and collaborate story. Allergies: Coded Allergies: No Known Allergies (Unverified Allergy, Unknown, 11/24/15) Home Meds Reported Medications Potassium Chloride (Potassium Chloride) 20 Meq Tablet.er, 20 MEQ PO DAILY, TAB 11/29/22 Levothyroxine Sodium (Levothyroxine) 50 Mcg Capsule, 50 MCG PO ACBKFST, CAP 11/29/22 Nitroglycerin (Nitroglycerin) 0.4 Mg Tab.subl, 0.4 MG SL AD PRN for CHEST PAIN, TAB.SL 11/29/22 Acetaminophen (Tylenol) 325 Mg Tablet, 650 MG PO AD PRN for PAIN, TAB 11/29/22 Multivitamin (Multivitamin) 1 Each Tablet, 1 EACH PO DAILY, TAB 11/29/22 Magnesium Oxide (Magnesium) 400 Mg Capsule, 400 MG PO QODAY, CAP 11/29/22 Omeprazole (Omeprazole) 40 Mg Capsule.dr, 40 MG PO QODAY, CAP 11/29/22 Furosemide (Furosemide) 80 Mg Tablet, 80 MG PO DAILY, TAB 11/29/22 Ondansetron (Ondansetron Odt) 4 Mg Tab.rapdis, 4 MG PO AD PRN for n/v, TAB 03/22/22 Amiodarone HCl (Pacerone) 200 Mg Tablet, 200 MG PO DAILY, TAB 03/22/22 Apixaban (Eliquis) 5 Mg Tablet, 5 MG PO BID, TAB REANUDAR ELIQUIS 12/04/22 03/22/22 [place]-3 Fatty Acids/Fish Oil ([place] 3 1,000 mg Softgel) 1 Each Capsule, 1 EACH PO DAILY, CAP 02/25/18 Aspirin (Aspirin) 81 Mg Tab.chew, 81 MG PO DAILY, TAB.CHEW 11/24/15 Alendronate Sodium (Alendronate Sodium) 70 Mg Tablet, 70 MG PO QWEEK, TAB 11/24/15 Diltiazem HCl (Diltiazem HCl) 120 Mg Tablet, 120 MG PO BID, TAB 11/24/15 Atorvastatin Calcium (Atorvastatin Calcium) 40 Mg Tablet, 40 MG PO HS, TAB 11/24/15 Past Medical History Past Medical History: A-Fib Past Surgical History: Other Surgical History Other: R ANKLE, L KNEE, BACK SX Social History Social History: Negative, Other ROS Dictation CONSTITUTIONAL: No chills, no fever, no weakness, no diaphoresis, no malaise. HEAD/FACE: No signs of trauma. EENT: No eye pain, no blurred vision, no tearing, no double vision, no ear pain, no ear discharge, no nose pain, no nasal congestion, no throat pain, no throat swelling, no mouth pain. RESPIRATORY: No cough, no orthopnea, no SOB, no stridor, no wheezing. CARDIOVASCULAR: No chest pain, no edema, no palpitations, no syncope. GASTROINTESTINAL/ABDOMINAL: No abdominal pain, no constipation, no diarrhea, no nausea, no vomiting. GENITOURINARY: No abnormal discharge, no dysuria, no frequent urination, no hematuria. No complaints of pain in the genitals. MUSCULOSKELETAL: No back pain, no gout, no joint pain, no joint swelling, no muscle pain, no muscle stiffness, no neck pain. INTEGUMENTARY: No change in color, no change in hair/nails, no dryness, no lesion, no lumps, no rash. NEUROLOGICAL/PSYCH: No anxiety, not depressed, no emotional problem, no headache, no numbness, no pre-existing deficit, no history of seizures, no tremors, no weakness. HEMATOLOGIC/LYMPHATIC: Not anemic, no history of blood clots, no apparent bleeding, no bruising, glands not swollen. All Systems Negative, Except as Noted. Physical Exam Physical Exam Dictation VITAL SIGNS: Reviewed. GENERAL APPEARANCE: Alert, oriented x3, no acute distress, obese. HEAD AND FACE: Non-traumatic. Left frontal ecchymosis EYES: PERRL, pink conjunctivas, eyelid no trauma, anterior chamber clear. EARS: Pinnas intact and no signs of trauma or erythema. Ear canals clear and no discharge. TMs no erythema. NOSE: No discharge, no bleeding. OROPHARYNX: Mouth normal, teeth no caries, tongue pink. Pharynx clear, no erythema. Tonsils no exudates, no abscesses noted. Mucous membrane moist. NECK: Supple, non-tender, no thyromegaly, no masses, no JVD, no bruits. BREAST: Deferred. CHEST: No tenderness, no crepitus, no paradoxical movement, no retractions. LUNGS: Clear, well-ventilated, symmetric, no rales, no wheezing, no rhonchi, no stridor, good breath sounds bilaterally. HEART: Regular rate, regular rhythm, no murmur, no gallops. VASCULAR: No peripheral edema. ABDOMEN: Soft, positive bowel sounds, nondistended, no guarding, nontender, no rebound, no masses no hepatomegaly, no splenomegaly, no Monzon's sign, no hernias. RECTAL: Deferred. GENITAL: Deferred. NEUROLOGICAL: Normal speech, gross motor function intact, gross sensory function intact. MUSCULOSKELETAL: Neck nontender, full range of motion, back nontender, full range of motion. EXTREMITIES: Nontender, full range of motion. SKIN: Color pink, dry, no turgor, no rash, no lacerations, no abrasions, no contusions. LYMPHATICS: Deferred. Results Laboratory and Microbiology Lab and Micro Result Laboratory Tests Test 01/22/25 13:25 Urine Color COLORLESS (YELLOW) Urine Appearance CLEAR (CLEAR) Urine pH 7.0 (5.0-8.0) Urine Specific [place] 1.006 (1.001-1.031) Urine Protein 10 mg/dL (NEGATIVE) H Urine Glucose (UA) NEGATIVE mg/dL (NEGATIVE) Urine Ketones NEGATIVE mg/dL (NEGATIVE) Urine Occult Blood NEGATIVE (NEGATIVE) Urine Nitrate NEGATIVE (NEGATIVE) Urine Bilirubin NEGATIVE mg/dL (NEGATIVE) Urine Urobilinogen 0.2 mg/dL (0.2-1.0) Urine Leukocyte Esterase NEGATIVE Erick/uL Urine RBC None /HPF (0-1) Urine WBC 2-5 /HPF (0-1) H Urine Squamous Epithelial Cells RARE /HPF (0-2) Urine Bacteria None /HPF (None Seen) Labs Reviewed?: Yes EKG/XRAY/US/CT/MRI CT Scan Comment [place] [id number] [place] [address] IMAGING REPORT Signed PATIENT: AYLEEN HUDSON MR#: [id number] : 1945 SEX: F AGE: 80 LOCATION: [facility] ORDER [id number] STATUS: REG ER REPORT#: [id number] SERVICE 1240 REASON: FALL ORDERING PHYSICIAN: ERVIN PEARCE MD PROCEDURE: HEAD WO - CT HEAD/BRAIN W/O CONTRAST CT HEAD/BRAIN W/O CONTRAST HISTORY: Status post fall COMPARISON: None TECHNIQUE: Multiple sequential axial images of the head were obtained from the base of the skull through vertex. Patient was not given contrast through intravenous route. FINDINGS: The ventricles and extraventricular CSF spaces are dilated consistent with cerebral atrophy. Nonspecific white matter changes seen. There is left frontal lobe arachnoid cyst. There are bilateral petrous apex air cells with right more than left. There is no midline shift, mass effect or herniation. No acute intracranial bleed is seen. Visualized portion of the paranasal sinuses are grossly within normal limits. IMPRESSION: 1. No acute intracranial bleed is seen. 2. Atrophy with white matter changes. CT was performed with one or more following dose reduction techniques: automated exposure control, adjustment of the mA and kv according to patient's size, or use of a iterative reconstruction technique. DICTATED BY: ELISSA ZAVALA MD DATE: 01/22/25 132 ELECTRONICALLY SIGNED BY: ELISSA ZAVALA MD DATE: 01/22/25 132 [facility] MDM: Differential diagnosis: Fall, contusion, Rationale: Tests considered and ordered secondary to shared decision making include: Previous outside records reviewed: Old ER visits. Risk of complication and/or morbidity or mortality of patient management: None Medications-Per medication reconciliation Patient is a an 80-year-old female coming in to be evaluated for left frontal pain secondary to fall. CT did not disclose acute findings. Patient will be discharged stable condition with a diagnosis of mechanical fall with head contusion. ED Course Orders Procedure Category Date Status Time Ct Head/Brain W/O CT 01/22/25 Resulted Contrast 12:40 Urinalysis Profile LAB 01/22/25 Complete 13:26 Vital Signs Date Time Temp Pulse Resp B/P (MAP) Pulse Ox O2 Delivery O2 Flow Rate FiO2 01/22/25 12:39 98.1 97 16 140/89 97 Room Air 0 DX & DISP Disposition: Discharge Departure Impression: Primary Impression: Contusion of face Additional Impression: Ground-level fall Condition: Stable Additional Instructions: FOLLOW-UP WITH PRIMARY CARE PROVIDER IN 1 TO 2 DAYS. TAKE MEDICATIONS DIRECTED HERE IN THE EMERGENCY ROOM. OKAY TO CONTINUE HOME MEDICATIONS UNLESS OTHERWISE DISCUSSED DURING YOUR VISIT IN THE EMERGENCY ROOM TODAY. RETURN TO YOUR NEAREST EMERGENCY ROOM IF SYMPTOMS WORSEN OR IF THERE IS NO IMPROVEMENT. CALL 911 IF YOU NEED IMMEDIATE ASSISTANCE. TAKE TYLENOL [id number] NEEDED AND IF NO CONTRAINDICATIONS ARE PRESENT. INCREASE ORAL HYDRATION. A WOUND CULTURE OR URINE CULTURE WAS ORDERED HERE IN THE EMERGENCY ROOM DEPARTMENT PLEASE FOLLOW-UP WITH PRIMARY CARE PROVIDER AND ADVISE THEM TO GET REPEAT PORTS FROM OUR FACILITY. IF YOU HAD ANY MICHELLE WRAP/SPLINTS THAT WERE APPLIED HERE, PLEASE DO NOT REMOVE THEM UNTIL YOU SEE YOUR PRIMARY CARE OR SPECIALTY. Referrals: Referrals: AYAZ MORELAND (PCP) Time of Disposition: 13:54 ERVIN PEARCE MD January 22, 2025 13:46
[2025-01-22 13:51] LABS: SQUAMOUS EPITHELIAL CELL,UR RARE /HPF (0-2)
[2025-01-22 14:10] VITALS: BP 117/82; PULSE 81; RESP 20; TEMP 97.8; O2SAT 98
== END 2025-01-22 14:14 | disposition home or self-care (01) ==
LOC: EDH 12:37
DX: S00.83XA Contusion of other part of head, initial encounter (principal); Z79.01 Long term (current) use of anticoagulants; Z79.82 Long term (current) use of aspirin; Z79.899 Other long term (current) drug therapy; W18.39XA Other fall on same level, initial encounter; Y93.89 Activity, other specified; Y92.89 Other specified places as the place of occurrence of the external cause; Y99.8 Other external cause status
CPT/HCPCS: 70450; 81001; 99284

== ENCOUNTER 2025-02-15 10:21 | Emergency (ER) | payer OTHER ==
[~2025-02-15] VITALS: Ht 152.4 cm; Wt 61.2 kg
--- NOTE | 2025-02-15 10:29 | NUR ---
PT JUST NOW PLACED IN MY ED BED 9
--- NOTE | 2025-02-15 11:35 | EKG ---
[facility] Test Date: 2025-02-15 Test Time: 11:32:43 Pat Name: AYLEEN HUDSON Department: [facility] Room: Gender: F Patient Observer: [id number] : 1945 Requested By: TRU DIAZ Order Number: [id number] Reading MD: Saeed Zhao Measurements Intervals [place] Rate: 116 P: 0 HI: 0 QRS: -14 QRSD: 87 T: 79 QT: 338 QTc: 470 Interpretive Statements Atrial fibrillation Inferior infarct, old Anterior infarct, old Compared to ECG 11/29/2022 09:33:09 Sinus rhythm no longer present First degree AV block no longer present Left ventricular hypertrophy no longer present Myocardial infarct finding still present Electronically Signed On 02-16-2025 17:31:24 CDT by aSeed Zhao Please click the below link to view image of tracing.
[2025-02-15 11:40] LABS: BASOPHILS # (AUTO) 0.04 K/uL (0.00-0.20); BASOPHILS % (AUTO) 0.5 % (0.0-5.0); EOSINOPHILS # (AUTO) 0.08 K/uL (0.00-0.70); HEMATOCRIT 43.4 % (36-48); IMMATURE GRANULOCYTE ABSOLUTE 0.02 K/uL (0-1); LYMPHOCYTES # (AUTO) 1.7 K/uL (1.0-4.8); LYMPHOCYTES % (AUTO) 20.8 % (21.0-51.0); MEAN CORPUSCULAR HEMOGLOBIN 33.8 pg (27.0-33.0); MEAN CORPUSCULAR HGB CONC 33.9 g/dL (32.0-36.0); MEAN CORPUSCULAR VOLUME 99.8 fL (79-99); MONOCYTES # (AUTO) 0.5 K/uL (0.1-1.0); MONOCYTES % (AUTO) 5.7 % (3.0-13.0); NEUTROPHILS # (AUTO) 5.8 K/uL (1.8-7.7); NEUTROPHILS % (AUTO) 71.8 % (40.0-77.0); PLATELET COUNT (AUTO) 237 K/uL (130-400); RED BLOOD CELL COUNT(AUTO) 4.35 MIL/uL (4.00-5.50); RED CELL DISTRIBUTION WIDTH 13.2 % (11.0-15.5); WHITE BLOOD COUNT (AUTO) 8.1 K/uL (4.8-10.8)
[2025-02-15 11:48] LABS: CREATININE 0.6 mg/dL (0.5-1.0); POTASSIUM 4.5 mmol/L (3.5-5.1)
--- NOTE | 2025-02-15 11:53 | ERN ---
ED Note History of Present Illness Stated Complaint: DIZZINESS, NAUSEA Chief Complaint: Dizzy/Light Headed Time Seen by MD: 10:29 Time Seen by Midlevel: 10:33 Dictation: 80-year-old female coming in with complaints of dizziness and nauseated dense yesterday. Patient states symptoms worsened when she tries to move or bend down to sweet pickle maker things. Denies having any recent illness, denies any vomiting, diarrhea, chest pain, chest discomfort, fevers, headaches. Allergies: Coded Allergies: No Known Allergies (Unverified Allergy, Unknown, 11/24/15) Home Meds Active Scripts Meclizine HCl (Meclizine HCl) 25 Mg Tablet, 25 MG PO TID for vertigo for 3 Days, #9 TAB 0 Refills Prov:TRU DIAZ SQL ENGINEER 02/15/25 Reported Medications Potassium Chloride (Potassium Chloride) 20 Meq Tablet.er, 20 MEQ PO DAILY, TAB 11/29/22 Levothyroxine Sodium (Levothyroxine) 50 Mcg Capsule, 50 MCG PO ACBKFST, CAP 11/29/22 Nitroglycerin (Nitroglycerin) 0.4 Mg Tab.subl, 0.4 MG SL AD PRN for CHEST PAIN, TAB.SL 11/29/22 Acetaminophen (Tylenol) 325 Mg Tablet, 650 MG PO AD PRN for PAIN, TAB 11/29/22 Multivitamin (Multivitamin) 1 Each Tablet, 1 EACH PO DAILY, TAB 11/29/22 Magnesium Oxide (Magnesium) 400 Mg Capsule, 400 MG PO QODAY, CAP 11/29/22 Omeprazole (Omeprazole) 40 Mg Capsule.dr, 40 MG PO QODAY, CAP 11/29/22 Furosemide (Furosemide) 80 Mg Tablet, 80 MG PO DAILY, TAB 11/29/22 Ondansetron (Ondansetron Odt) 4 Mg Tab.rapdis, 4 MG PO AD PRN for n/v, TAB 03/22/22 Amiodarone HCl (Pacerone) 200 Mg Tablet, 200 MG PO DAILY, TAB 03/22/22 Apixaban (Eliquis) 5 Mg Tablet, 5 MG PO BID, TAB REANUDAR ELIQUIS 12/04/22 03/22/22 Derby-3 Fatty Acids/Fish Oil (Derby 3 1,000 mg Softgel) 1 Each Capsule, 1 EACH PO DAILY, CAP 02/25/18 Aspirin (Aspirin) 81 Mg Tab.chew, 81 MG PO DAILY, TAB.CHEW 11/24/15 Alendronate Sodium (Alendronate Sodium) 70 Mg Tablet, 70 MG PO QWEEK, TAB 11/24/15 Diltiazem HCl (Diltiazem HCl) 120 Mg Tablet, 120 MG PO BID, TAB 11/24/15 Atorvastatin Calcium (Atorvastatin Calcium) 40 Mg Tablet, 40 MG PO HS, TAB 11/24/15 Past Medical History Past Medical History: A-Fib, Diabetes-Type II, High Cholesterol, Heart Disease, Hypertension Surgical History: Other Surgical History Other: R ANKLE, L KNEE, BACK SX Social History: Negative, Other Review of System Dictation Constitutional: Negative for fever,chills, and weight loss Eyes: Negative for injury, pain,redness, and discharge ENT: Negative for injury,pain or swelling Cardiovascular: Negative for chest pain, palpitations, and edema Respiratory: Negative for shortness of breath, cough, and wheezing, Abdomen/GI: Negative for abdominal pain, nausea, vomiting, diarrhea, and constipation Back: Negative for injury and pain : Negative for injury, bleeding and discharge MS/Extremity: Negative for injury and deformity Skin: Negative for rash, and discoloration Neuro: Negative for headache, weakness, numbness, tingling, and seizure , complaining of dizziness Psych: Negative for suicide ideation, homicidal ideation, and hallucinations Review of Systems: was completed Initial Vital Sign VS Vital Signs Date Time Temp Pulse Resp B/P (MAP) Pulse Ox O2 Delivery O2 Flow Rate FiO2 02/15/25 10:23 98.8 127 18 163/100 96 Room Air 0 02/15/25 10:37 21 Physical Exam Dictation General: awake, alert, NAD Head/Face: Normocephalic, atraumatic Eyes: PERRL, EOMI, vision at baseline ENT: oral cavity clear, TMs clear, no signs of infection Neck: Trachea midline, supple, no nuchal rigidity Cardiovascular: RRR, normal S1/S2, No MRGs, no JVD Respiratory: CTAB, no respiratory distress, No rales or wheezes Abdomen: Soft, non-tender, non-distended, normal bowel sounds, no guarding or rebound. Skin: Warm, dry, normal turgor, no rash MS/Extremity: Pulses equal, no cyanosis, neurovascular intact, FROM Neuro: COAx4, GCS 15, strength 5/5, CN 2-12 intact, normal cerebellar exam, normal gait, Psych: Normal behavior, mood, and affect normal Results (Laboratory/Radiology) Laboratory/Radiology Laboratory Tests Test 02/15/25 11:14 02/15/25 12:25 White Blood Count 8.1 K/uL (4.8-10.8) Red Blood Count 4.35 MIL/uL (4.00-5.50) Hemoglobin 14.7 g/dL (12.0-16.0) Hematocrit 43.4 % (36-48) Mean Corpuscular Volume 99.8 fL (79-99) H Mean Corpuscular Hemoglobin 33.8 pg (27.0-33.0) H Mean Corpuscular Hemoglobin Concent 33.9 g/dL (32.0-36.0) Red Cell Distribution Width 13.2 % (11.0-15.5) Platelet Count 237 K/uL (130-400) Mean Platelet Volume 9.2 fL (7.5-10.5) Immature Granulocyte % (Auto) 0.2 % (0-1) Neutrophils (%) (Auto) 71.8 % (40.0-77.0) Lymphocytes (%) (Auto) 20.8 % (21.0-51.0) L Monocytes (%) (Auto) 5.7 % (3.0-13.0) Eosinophils (%) (Auto) 1.0 % (0.0-8.0) Basophils (%) (Auto) 0.5 % (0.0-5.0) Neutrophils # (Auto) 5.8 K/uL (1.8-7.7) Lymphocytes # (Auto) 1.7 K/uL (1.0-4.8) Monocytes # (Auto) 0.5 K/uL (0.1-1.0) Eosinophils # (Auto) 0.08 K/uL (0.00-0.70) Basophils # (Auto) 0.04 K/uL (0.00-0.20) Absolute Immature Granulocyte (auto 0.02 K/uL (0-1) Nucleated Red Blood Cells 0.0 % (0.0-0.19) Sodium Level 142 mmol/L (136-145) Potassium Level 4.5 mmol/L (3.5-5.1) Chloride Level 105 mmol/L (101-111) Carbon Dioxide Level 28 mmol/L (21-32) Blood Urea Nitrogen 15 mg/dL (7-18) Creatinine 0.6 mg/dL (0.5-1.0) Glomerular Filtration Rate Calc 90 mL/min (>90) Random Glucose 115 mg/dL (70-105) H Total Calcium 9.2 mg/dL (8.5-10.1) Troponin I High Sensitivity 12 ng/L (4-50) Urine Color COLORLESS (YELLOW) Urine Appearance CLEAR (CLEAR) Urine pH 7.5 (5.0-8.0) Urine Specific Deport 1.007 (1.001-1.031) Urine Protein 10 mg/dL (NEGATIVE) H Urine Glucose (UA) NEGATIVE mg/dL (NEGATIVE) Urine Ketones NEGATIVE mg/dL (NEGATIVE) Urine Occult Blood NEGATIVE (NEGATIVE) Urine Nitrate NEGATIVE (NEGATIVE) Urine Bilirubin NEGATIVE mg/dL (NEGATIVE) Urine Urobilinogen 0.2 mg/dL (0.2-1.0) Urine Leukocyte Esterase NEGATIVE Erick/uL Urine RBC 0-1 /HPF (0-1) Urine WBC 0-1 /HPF (0-1) Urine Bacteria None Seen /HPF (None Seen) Labs Reviewed?: Yes EKG Comment: EKGs done at 11:32 a.m., atrial fibrillation, rate of 116, inferior infarct, old. No STEMI interpreted by ER MD CT Scan Comment: [address] [address] IMAGING REPORT Signed PATIENT: AYLEEN HUDSON MR#: [id number] : 1945 SEX: F AGE: 80 LOCATION: [facility] ORDER 04 STATUS: REG ER REPORT#: [id number] SERVICE 110 REASON: dizziness/nausea/vomiting ORDERING PHYSICIAN: TRU DIAZ NP PROCEDURE: HEAD WO - CT HEAD/BRAIN W/O CONTRAST Exam Type: CT HEAD/BRAIN W/O CONTRAST Clinical Information: dizziness/nausea/vomiting Comparison: None CT Dose Index (CTDI): 57.33 mGy Dose Length Product (DLP): 956.79 total mGy-cm Findings: This study was performed using dose reduction techniques to include automated exposure control and/or adjustment of the mA and/or kV according to patient size. The examination is unremarkable except for atrophy and a left frontal arachnoid cyst, 3.9 x 2.4 cm. Stewart-white matter junction is preserved. No intra or extra axial lesions or fluid collections are seen. Specifically, stewart and white matter are normal in signal characteristics with normal caliber of ventricles and periventricular cisterns with no evidence of intra or or extra-axial hemorrhage, lacunar infarct, or major territorial infarct, mass, or other abnormality. There are no infarcts. There are no hemorrhages. Periventricular white matter locations are preserved. The orbital contents and structures of the posterior fossa are intact. Impression: Atrophy. Left frontal arachnoid cyst. No acute pathology. This study was performed using dose reduction techniques to include automated exposure control and/or adjustment of the mA and/or kV according to patient size. DICTATED BY: DANICA ESQUEDA MD DATE: 02/15/25 1201 ELECTRONICALLY SIGNED BY: DANICA ESQUEDA MD DATE: 02/15/25 1205 ED Course ED Course Orders Procedure Category Date Status Time Cbc With Differential LAB 02/15/25 Complete 11:03 Basic Metabolic Panel LAB 02/15/25 Complete 11:03 Troponin I High LAB 02/15/25 Complete Sensitivity 11:03 12 Lead Ekg Tracing- EKG 02/15/25 Complete Technical 11:03 Chest 1vw RAD 02/15/25 Resulted 11:03 Ct Head/Brain W/O CT 02/15/25 Resulted Contrast 11:03 Urinalysis Profile LAB 02/15/25 Complete 11:03 0.9%Nacl 1000ml (Ns PHA 02/15/25 Complete 1000ml) 11:03 Meclizine Hcl 25 Mg PHA 02/15/25 Complete (Antivert 25 Mg) 11:03 0.9%Nacl 1000ml (Ns PHA 02/15/25 Complete 1000ml) 13:16 Current Medications Medications (Trade) Dose Ordered Sig/Mira Route PRN Reason Start Time Stop Time Status Last Admin Dose Admin Meclizine HCl (ANTIvert 25 mg) 25 mg ONCE STAT PO 02/15/25 11:03 02/15/25 11:07 DC 02/15/25 11:58 Sodium Chloride 1,000 ml @ 500 mls/hr Q2H STAT IV 02/15/25 13:16 02/15/25 15:15 DC 02/15/25 15:21 Sodium Chloride 1,000 ml @ 1,000 mls/hr Q1H STAT IV 02/15/25 11:03 02/15/25 12:02 DC 02/15/25 11:58 Vital Signs Date Time Temp Pulse Resp B/P (MAP) Pulse Ox O2 Delivery O2 Flow Rate FiO2 02/15/25 15:27 98.4 121 18 151/88 97 Room Air* 0 21 02/15/25 12:09 85 17 144/99 95 Room Air* 0 21 02/15/25 10:37 98.6 121 16 151/98 97 Room Air* 0 21 02/15/25 10:23 98.8 127 18 163/100 96 Room Air 0 Medical Decision Making MDM MDM: CBC shows no leukocytosis, no anemia, no thrombocytopenia. EKGs shows no electrolyte abnormality. Kidney function within normal range. Troponin is neg ative. UA shows no evidence of urinary tract infection. EKGs did not show any ST elevation or dysrhythmias. CT scan of the head shows a left frontal arachnoid cyst, that was there previous studies. Chest x-ray shows cardiomegaly clear lungs. Patient states he feels better after fluids and meclizine. Offered patient admission for observation patient denied admission and wants to be discharged home. Patient was able to ambulate without assistance to the bathroom multiple times here in the emergency room, vital signs have remained stable. Educated patient on signs and symptoms of when to return back to the emergency room. Differential diagnosis: Vertigo, dehydration, Rationale: Tests considered and ordered secondary to shared decision making include: Previous outside records reviewed: Old ER visits. Risk of complication and/or morbidity or mortality of patient management: None Medications-Per medication reconciliation Need for hospitalization: Patient does not meet criteria for hospitalization. Need for emergency major/minor surgery: No There are no social concerns with this patient. Prescription drug management Prescriptions will include symptomatic care Patient's prior external medical records from other ER visits were reviewed by me as indicated. Prior testing and results from previous visits were reviewed. Prior tests were taken into account with medical decision making and resource utilization, independent historian/historians were used to obtain complete medical history. I independently interpreted the test that were performed, results were reviewed by me and considered findings on radiology if ordered. Medical management and examination interpretation discussions were had by me with other qualified healthcare professionals as indicated for the patient's care. DX & DISP Disposition: Discharge Departure Impression: Primary Impression: Vertigo Condition: Stable Scripts Meclizine HCl (Meclizine HCl) 25 Mg Tablet 25 MG PO TID for vertigo for 3 Days, #9 TAB 0 Refills Prov: TRU DIAZ NP 02/15/25 Additional Instructions: porfavor de seguir co tu doctor de jasonezlisa. regresar si tus symptomas regresan o empeoran. Referrals: AYAZ MORELAND (PCP) Time of Disposition: 14:44 I have reviewed the case, and I agree with, Diagnosis and Plan I performed the substantive portion of the visit. I have reviewed and personally made and approve the management plan that is documented in the notes by myself or the CATA. I acknowledge full responsibility for the patient's management plan. TRU DIAZ NP February 15, 2025 11:53 RASHAD VILLASENOR MD February 15, 2025 18:31
[2025-02-15] MEDS: 0.9%NACL 1000ML 1,000 ML IV STA ×2 (11:58→15:21)
[2025-02-15] MEDS: mecliZINE HCL 25 MG TABLET PO STA (11:58)
--- NOTE | 2025-02-15 12:05 | HMCIMG ---
Exam Type: CT HEAD/BRAIN W/O CONTRAST Clinical Information: dizziness/nausea/vomiting Comparison: None CT Dose Index (CTDI): 57.33 mGy Dose Length Product (DLP): 956.79 total mGy-cm Findings: This study was performed using dose reduction techniques to include automated exposure control and/or adjustment of the mA and/or kV according to patient size. The examination is unremarkable except for atrophy and a left frontal arachnoid cyst, 3.9 x 2.4 cm. Stewart-white matter junction is preserved. No intra or extra axial lesions or fluid collections are seen. Specifically, stewart and white matter are normal in signal characteristics with normal caliber of ventricles and periventricular cisterns with no evidence of intra or or extra-axial hemorrhage, lacunar infarct, or major territorial infarct, mass, or other abnormality. There are no infarcts. There are no hemorrhages. Periventricular white matter locations are preserved. The orbital contents and structures of the posterior fossa are intact. Impression: Atrophy. Left frontal arachnoid cyst. No acute pathology. This study was performed using dose reduction techniques to include automated exposure control and/or adjustment of the mA and/or kV according to patient size.
--- NOTE | 2025-02-15 12:20 | HMCIMG ---
Exam Type: CHEST 1VW Clinical Information: cp Comparison: None Findings: The lungs are clear of infiltrates. The heart is enlarged. Bony and soft tissue structures of the chest wall are unremarkable. IMPRESSION: Cardiomegaly. Clear lungs.
--- NOTE | 2025-02-15 12:24 | NUR ---
PT ASSISTED OOB TO BR TO ATTEMPT AT COLLECTION OF A URINE SAMPLE.
--- NOTE | 2025-02-15 12:30 | NUR ---
PT WAS ASSISTED OOB TO BR BY DEE GIBBS. PT WAS ABLE TO COLLECT URINE FOR A SAMPLE. IT WAS COLLECTED, LABELED AND SENT TO LAB
[2025-02-15 12:41] LABS: APPEARANCE,URINE CLEAR (CLEAR); BILIRUBIN,URINE NEGATIVE (NEGATIVE); COLOR,URINE COLORLESS (YELLOW); GLUCOSE, URINE (UA) NEGATIVE (NEGATIVE); KETONES,URINE NEGATIVE (NEGATIVE); LEUKOCYTE ESTERASE ,URINE NEGATIVE Leu/uL (NEGATIVE); NITRATE,URINE NEGATIVE (NEGATIVE); OCCULT BLOOD,URINE NEGATIVE (NEGATIVE); PH,URINE 7.5 (5.0-8.0); PROTEIN,URINE 10 mg/dL (NEGATIVE); UROBILINOGEN,URINE 0.2 mg/dL (0.2-1.0)
[2025-02-15 12:49] LABS: ADD UA MICROSCOPIC YES; BACTERIA,URINE None Seen /HPF (None Seen); RBC,URINE 0-1 /HPF (0-1); WBC,URINE 0-1 /HPF (0-1)
--- NOTE | 2025-02-15 13:16 | NUR ---
PT ASSISTED OOB TO BR AND BACK. PT STATED SHE STILL FEELS A LITTLE "OFF". DRESS SHOE INSPECTOR TRU WAS MADE AWARE. PT STATED SHE HAS NOT DRUNK ANY WATER THE LAST TWO DAYS BUT DID HAVE TWO CAFFEINATED SODAS LAST NIGHT
--- NOTE | 2025-02-15 14:14 | NUR ---
ORTHOSTATIC VITAL SIGNS: LYING 136/89 86BPM SITTING 144/93 98BPM STANDING 133/87 109BPM PT HAS HX OF ATRIAL FIBRILLATION
[2025-02-15] MEDS ORDERED: MECL-302 PO (14:44)
--- NOTE | 2025-02-15 15:18 | NUR ---
PT WAS ASSISTED TO/FROM THE RESTROOM BY POOL GIBBS. PT STATES SHE FEELS BETTER AND LESS DIZZY
[2025-02-15 15:27] VITALS: BP 151/88; PULSE 121; RESP 18; TEMP 98.4; O2SAT 97
== END 2025-02-15 15:30 | disposition home or self-care (01) ==
LOC: EDH 10:21
DX: R42 Dizziness and giddiness (principal); I48.91 Unspecified atrial fibrillation; E11.9 Type 2 diabetes mellitus without complications; E78.00 Pure hypercholesterolemia, unspecified; I11.9 Hypertensive heart disease without heart failure; Z79.01 Long term (current) use of anticoagulants; Z79.82 Long term (current) use of aspirin; Z79.899 Other long term (current) drug therapy
CPT/HCPCS: 99285; 96360; 70450; 71045; 96361; 84484; 80048; 85025; 81001; 36415; 93005; J7030 ×2

== ENCOUNTER → 2025-04-13 | Outpatient (CLI) | payer OTHER ==
[~2025-04-13] MED LIST changes: -AMIO200T44 PO; +ASCO100031 PO; -ATOR40TA71 PO; +DOFE250C4 PO; -FURO80TA3 PO; +GABA-529 PO; -LEVO50CA5 PO; +LEVO50TA11 PO; -MAGN400C PO; -MULT-1367 PO; +Magnesium Citrate PO; -OMEP40CA21 PO; -POTA-364 PO; +VIT1CAPS46 PO; +VITA1CAP85 PO
== END | disposition home or self-care (01) ==
LOC: RAH 11:34
PROVIDERS: ATTEND Physician Assistant Medical
DX: Z12.31 Encounter for screening mammogram for malignant neoplasm of breast (principal)
CPT/HCPCS: 77067

== ENCOUNTER 2025-08-19 16:05 | Emergency (ER) | payer OTHER ==
[~2025-08-19] VITALS: Ht 152.4 cm; Wt 63.5 kg
[~2025-08-19 16:05] MED LIST changes: -ASCO100031 PO; +ASCO10004 PO
--- NOTE | 2025-08-19 16:08 | NUR ---
TRAUMA LEVEL 2. SEE TRAUMA FLOWSHEET FOR DOCUMENTATIONS.
--- NOTE | 2025-08-19 16:16 | ERN ---
ED Note History of Present Illness Stated Complaint: FALL Chief Complaint: Multiple Trauma/Fall Time Seen by MD: 16:12 Dictation: PATIENT IS AN 80-YEAR-OLD FEMALE HERE WITH HER SON WITH COMPLAINTS OF A TRIP FALL AT 12:00 TODAY WHILE AT [employer]. SHE HIT THE BACK OF HER HEAD. THERE WAS NO LOC NO NAUSEA VOMITING. PATIENT IS ON ELIQUIS AND TRAUMA ALERT WAS ACTIVATED. THERE WAS NO MIDLINE SPINE PAIN IN TRIAGE NO HIP PAIN AND PATIENT HAS NO OTHER COMPLAINTS OTHER THAN THE BACK OF HER HEAD. NIH IS 0 ON EXAM OTHER THAN PATIENT HAS A HEARING AIDS IN BILATERALLY. ER MD WAS NOTIFIED. Allergies: Coded Allergies: metoprolol (Unverified Allergy, Unknown, 03/16/25) Home Meds Active Scripts Dofetilide (Dofetilide) 250 Mcg Capsule, 1 CAP PO BID for 30 Days, #60 CAP 3 Refills Prov:POOL WATSON MD 03/18/25 Reported Medications Vitamin B Complex (Vitamin B Complex) 1 Each Capsule, 1 CAP PO DAILY for 30 Days, #60 CAP 0 Refills 03/16/25 Ascorbic Acid (Vitamin C) 1,000 Mg Tablet, 1 TAB PO DAILY for 15 Days, #15 TAB 0 Refills DIRECTED 03/16/25 [Magnesium Citrate] 400 MG No Conflict Check, 1 TAB PO HS 03/16/25 Vit B6/Me-Thfolate/Me-B12/Ala (Podiapn Capsule) 35 Mg-5 Mg-2 Mg-300 Mg Capsule, 1 CAP PO BID for 30 Days, #60 CAP 0 Refills 03/16/25 Gabapentin (Gabapentin) 100 Mg Capsule, 1 CAP PO BID 03/16/25 Levothyroxine Sodium (Levothyroxine Sodium) 50 Mcg Tablet, 1 TAB PO DAILY 03/16/25 Nitroglycerin (Nitroglycerin) 0.4 Mg Tab.subl, 0.4 MG SL AD PRN for CHEST PAIN, TAB.SL 11/29/22 Acetaminophen (Tylenol) 325 Mg Tablet, 650 MG PO AD PRN for PAIN, TAB 11/29/22 Ondansetron (Ondansetron Odt) 4 Mg Tab.rapdis, 4 MG PO AD PRN for n/v, TAB 03/22/22 Apixaban (Eliquis) 5 Mg Tablet, 5 MG PO BID, TAB REANUDAR ELIQUIS 12/04/22 03/22/22 Reno-3 Fatty Acids/Fish Oil (Reno 3 1,000 mg Softgel) 1 Each Capsule, 1 EACH PO DAILY, CAP 02/25/18 Aspirin (Aspirin) 81 Mg Tab.chew, 81 MG PO QODAY, TAB.CHEW 11/24/15 Alendronate Sodium (Alendronate Sodium) 70 Mg Tablet, 70 MG PO QWEEK, TAB 11/24/15 Diltiazem HCl (Diltiazem HCl) 120 Mg Tablet, 120 MG PO BID, TAB 11/24/15 Past Medical History Past Medical History: Diabetes-Type II, High Cholesterol, Hypertension, Hypothyroid Surgical History: Appendectomy, Hysterectomy, Cholecystectomy Surgical History Other: BACK SX, KNEE SX Social History: Negative, Other History: Not Applicable RN Note Reviewed/Agreed w/PFSH: Yes Review of System Dictation CONSTITUTIONAL: NEGATIVE EXCEPT FOR HPI HEAD/FACE: NEGATIVE EXCEPT FOR HPI BILATERAL OCCIPITAL TENDERNESS EENT: NEGATIVE EXCEPT FOR HPI RESPIRATORY: NEGATIVE EXCEPT FOR HPI GASTROINTESTINAL/ABDOMINAL: NEGATIVE EXCEPT FOR HPI GENITOURINARY: NEGATIVE EXCEPT FOR HPI MUSCULOSKELETAL: NEGATIVE EXCEPT FOR HPI INTEGUMENTARY: NEGATIVE EXCEPT FOR HPI NEUROLOGICAL/PSYCH: NEGATIVE EXCEPT FOR HPI HEMATOLOGIC/LYMPHATIC: NEGATIVE EXCEPT FOR HPI ALL SYSTEMS NEGATIVE, EXCEPT NOTED ABOVE. 13 POINT REVIEW OF SYSTEMS ASSESSED AND ALL NEGATIVE EXCEPT FOR ABOVE. Initial Vital Sign VS Vital Signs Date Time Temp Pulse Resp B/P (MAP) Pulse Ox O2 Delivery O2 Flow Rate FiO2 08/19/25 16:07 99.0 85 20 160/88 99 Room Air Physical Exam Dictation VITAL SIGNS REVIEWED GENERAL APPEARANCE: ALERT, ORIENTED X 3, MILD ACUTE DISTRESS, WELL DEVELOPED, NOURISHED. HEAD AND FACE: MILD OCCIPITAL TENDERNESS BILATERALLY. NO HEMATOMA NO BEEBE OR RACCOON SIGN EYES: PERRL, PINK CONJUNCTIVAS, EYELID NO TRAUMA, ANTERIOR CHAMBER WITH ARCUS SENILIS. EARS: PINNAS INTACT AND NO SIGNS OF TRAUMA OR ERYTHEMA EAR CANALS CLEAR AND NO DISCHARGE TM NO ERYTHEMA NO HEMOTYMPANUM NOSE: NO DISCHARGE, NO BLEEDING. OROPHARYNX: MOUTH NORMAL, TONGUE PINK, PHARYNX CLEAR,NO ERYTHEMA, TONSILS NO EXUDATES, NO ABSCESSES NOTED, MUCOUS MEMBRANE MOIST NECK: SUPPLE, NON-TENDER, NO THYROMEGALY, NO MASSES, NO JVD, NO BRUITS BREAST:DEFERRED CHEST:NO TENDERNESS, NO CREPITUS, NO PARADOXICAL MOVEMENT, NO RETRACTIONS LUNGS:CLEAR, WELL-VENTILATED, SYMMETRIC, NO RALES, NO WHEEZING, NO RHONCHI, NO STRIDOR, GOOD BREATH SOUNDS BILATERALLY HEART: REGULAR RATE, REGULAR RHYTHM, NO MURMUR, NO GALLOPS VASCULAR: NO PERIPHERAL EDEMA, ABDOMEN: SOFT, POSITIVE BOWEL SOUNDS, NONDISTENDED, NO GUARDING, NONTENDER, NO REBOUND, NO MASSES NO HEPATOMEGALY, NO SPLENOMEGALY, NO ZUNIGA'S SIGN, NO HERNIAS. RECTAL: DEFERRED GENITAL: DEFERRED NEUROLOGICAL: NORMAL SPEECH, MOTOR FUNCTION INTACT, SENSORY FUNCTION INTACT MUSCULOSKELETAL: NECK NONTENDER, FULL RANGE OF MOTION, BACK NONTENDER, FULL RANGE OF MOTION, NO MIDLINE SPINE PAIN. NO STEP-OFFS EXTREMITIES: NONTENDER, FULL RANGE OF MOTION NO HIP OR PELVIC PAIN NO SHORTENING OR ROTATION OF EITHER EXTREMITY SKIN: COLOR PINK, DRY, NO TURGOR, NO RASH, NO LACERATIONS, NO ABRASIONS, NO CONTUSIONS. LYMPHATIC: DEFERRED Results (Laboratory/Radiology) Laboratory/Radiology AL HISTORY: Trauma alert; bilateral occipital pain status post fall and head impact. TECHNIQUE: Axial computed tomography images of the head/brain were obtained without intravenous contrast. COMPARISON: CT head/brain without contrast dated 01/22/2025 12:52 EDT. FINDINGS: BRAIN: There is mild diffuse cerebral volume loss with prominence of the cortical sulci and ventricles, appropriate for age. Scattered low-attenuation foci are present in the bilateral frontoparietal deep white matter, compatible with mild chronic small vessel ischemic changes. Along the left anterior paramedian frontal convexity, there is a CSF-density extra-axial lesion measuring approximately 3.7 x 1.9 x 3.4 cm, causing smooth scalloping/remodeling of the adjacent left frontal inner table with mild buckling of the underlying cortex. The lesion is predominantly hypodense like CSF with faint internal hyperdensities, and demonstrates no surrounding edema; imaging features are in keeping with a benign extra-axial cystic lesion, with leading considerations including arachnoid cyst versus epidermoid cyst. No acute intracranial hemorrhage, acute territorial infarct, midline shift, or new extra-axial collection is identified. Appearance of the extra-axial lesion is unchanged compared with the prior CT. VENTRICLES: The ventricles are mildly prominent in keeping with global volume loss, without hydrocephalus. ORBITS: The orbits are unremarkable. SINUSES AND MASTOIDS: The paranasal sinuses and mastoid air cells are clear. BONES: No acute calvarial or skull base fracture is identified. Smooth scalloping of the left frontal bone inner table is associated with the underlying extra-axial cystic lesion as described. SOFT TISSUES: The visualized scalp and facial soft tissues are unremarkable. SELLA: The sella turcica appears partially/near completely filled with CSF-density, with a flattened pituitary contour, compatible with an empty sella configuration. IMPRESSION: * No CT evidence of acute intracranial hemorrhage, acute territorial infarct, mass effect, or traumatic extra-axial hematoma in this post-fall setting. * Left anterior paramedian frontal convexity CSF-density extra-axial lesion (approximately 3.7 x 1.9 x 3.4 cm) with associated smooth frontal bone scalloping and mild cortical buckling; stable in size and appearance compared with CT of 01/22/2025, most consistent with a benign extra-axial cystic lesion such as an arachnoid cyst, with epidermoid cyst remaining in the differential. * Age-appropriate diffuse cerebral volume loss with mild chronic small vessel ischemic changes in the bilateral frontoparietal white matter. /[facility] Reviewed?: Yes ED Course ED Course Orders Procedure Category Date Status Time Ct Head/Brain W/O CT 08/19/25 Resulted Contrast 16:12 Acetaminophen 500mg PHA 08/19/25 In Process Tab (Tylenol 500mg T 16:30 Current Medications Medications (Trade) Dose Ordered Sig/Mira Route PRN Reason Start Time Stop Time Status Last Admin Dose Admin Acetaminophen (TYLenol 500MG TAB) 1,000 mg ONCE PO 08/19/25 16:30 08/19/25 21:30 08/19/25 17:07 Vital Signs Date Time Temp Pulse Resp B/P (MAP) Pulse Ox O2 Delivery O2 Flow Rate FiO2 08/19/25 17:07 99.0 08/19/25 16:07 99.0 85 20 160/88 99 Room Air 1715/SPOKE WITH PATIENT AND HER SON AT BEDSIDE. AND SHE SAYS SHE HAD BROUGHT HER MOTHER INTO THE HOSPITAL AT [facility] IN JANU[place] AFTER A FALL AND HAD THE SUBARACHNOID CYST IDENTIFIED AT THAT TIME ON CT. THEY FOLLOWED UP WITH A NEUROSURGEON IN THE NEUROSURGEON ADVISED HIM THAT THE ARACHNOID CYST HAS BEEN THERE SINCE OXYGEN EQUIPMENT AIDE NO NEED FOR SURGICAL INTERVENTION. PATIENT IS NEUROLOGICALLY INTACT AND WE WILL BE DISCHARGED HOME. Medical Decision Making MDM MEDICAL DISCHARGE MAKING BASED ON HPI AND CT OF THE HEAD. TRAUMA ALERT WAS ACTIVATED CT DEMONSTRATES CHRONIC ARACHNOID CYST WITHOUT ANY ACUTE CHANGES PATIENT NEUROLOGICALLY INTACT PATIENT HAS ALREADY BEEN EVALUATED IN THE PAST BY NEUROSURGERY FOR THE SAME ARACHNOID CYST WITH NO SURGICAL INTERVENTION NEEDED DISCHARGED HOME WITH FAMILY DX & DISP Disposition: Discharge Departure Impression: Primary Impression: Contusion of occipital region of scalp Additional Impressions: Closed head injury, Arachnoid cyst, Fall Condition: Stable Additional Instructions: FOLLOW-UP WITH PRIMARY CARE PROVIDER IN 1 TO 2 DAYS. TAKE MEDICATIONS DIRECTED HERE IN THE EMERGENCY ROOM. OKAY TO CONTINUE HOME MEDICATIONS UNLESS OTHERWISE DISCUSSED DURING YOUR VISIT IN THE EMERGENCY ROOM TODAY. RETURN TO YOUR NEAREST EMERGENCY ROOM IF SYMPTOMS WORSEN OR IF THERE IS NO IMPROVEMENT. CALL 911 IF YOU NEED IMMEDIATE ASSISTANCE. TAKE TYLENOL OR MOTRIN [id number] NEEDED AND IF NO CONTRAINDICATIONS ARE PRESENT. INCREASE ORAL HYDRATION. A WOUND CULTURE OR URINE CULTURE WAS ORDERED HERE IN THE EMERGENCY ROOM DEPARTMENT PLEASE FOLLOW-UP WITH PRIMARY CARE PROVIDER AND ADVISE THEM TO GET REPEAT PORTS FROM OUR FACILITY. IF YOU HAD ANY MICHELLE WRAP/SPLINTS THAT WERE APPLIED HERE, PLEASE DO NOT REMOVE THEM UNTIL YOU SEE YOUR PRIMARY CARE OR SPECIALTY. DIET AND ACTIVITY TOLERATED. SEE YOUR PRIMARY CARE DOCTOR FOR FOLLOW UP OR CALL NEUROLOGY AND MAKING APPOINTMENT FOR OUTPATIENT FOLLOW UP FOR CHRONIC DIZZINESS. RETURN TO THE EMERGENCY ROOM IMMEDIATELY IF ANY CHANGES FROM HEAD INJURY INFORMATION SHEET. Referrals: AYAZ MORELAND (PCP) ISAURA CHANG MD Time of Disposition: 17:16 I have reviewed the case, and I agree with, Diagnosis and Plan ELLYN PEDERSEN Sami [facility] Aug 19, 2025 16:16
--- NOTE | 2025-08-19 16:52 | HMCIMG ---
EXAM: CT Head Without IV contrast. CLINICAL HISTORY: Trauma alert; bilateral occipital pain status post fall and head impact. TECHNIQUE: Axial computed tomography images of the head/brain were obtained without intravenous contrast. COMPARISON: CT head/brain without contrast dated 01/22/2025 12:52 EDT. FINDINGS: BRAIN: There is mild diffuse cerebral volume loss with prominence of the cortical sulci and ventricles, appropriate for age. Scattered low-attenuation foci are present in the bilateral frontoparietal deep white matter, compatible with mild chronic small vessel ischemic changes. Along the left anterior paramedian frontal convexity, there is a CSF-density extra-axial lesion measuring approximately 3.7 x 1.9 x 3.4 cm, causing smooth scalloping/remodeling of the adjacent left frontal inner table with mild buckling of the underlying cortex. The lesion is predominantly hypodense like CSF with faint internal hyperdensities, and demonstrates no surrounding edema; imaging features are in keeping with a benign extra-axial cystic lesion, with leading considerations including arachnoid cyst versus epidermoid cyst. No acute intracranial hemorrhage, acute territorial infarct, midline shift, or new extra-axial collection is identified. Appearance of the extra-axial lesion is unchanged compared with the prior CT. VENTRICLES: The ventricles are mildly prominent in keeping with global volume loss, without hydrocephalus. ORBITS: The orbits are unremarkable. SINUSES AND MASTOIDS: The paranasal sinuses and mastoid air cells are clear. BONES: No acute calvarial or skull base fracture is identified. Smooth scalloping of the left frontal bone inner table is associated with the underlying extra-axial cystic lesion as described. SOFT TISSUES: The visualized scalp and facial soft tissues are unremarkable. SELLA: The sella turcica appears partially/near completely filled with CSF-density, with a flattened pituitary contour, compatible with an empty sella configuration. IMPRESSION: * No CT evidence of acute intracranial hemorrhage, acute territorial infarct, mass effect, or traumatic extra-axial hematoma in this post-fall setting. * Left anterior paramedian frontal convexity CSF-density extra-axial lesion (approximately 3.7 x 1.9 x 3.4 cm) with associated smooth frontal bone scalloping and mild cortical buckling; stable in size and appearance compared with CT of 01/22/2025, most consistent with a benign extra-axial cystic lesion such as an arachnoid cyst, with epidermoid cyst remaining in the differential. * Age-appropriate diffuse cerebral volume loss with mild chronic small vessel ischemic changes in the bilateral frontoparietal white matter. /[place]
[2025-08-19 18:00] VITALS: BP 130/79; PULSE 73; RESP 19; TEMP 98.7; O2SAT 97
[2025-08-19 18:03] VITALS: TEMP 99
--- NOTE | 2025-08-19 18:03 | NUR ---
DISCHARGE INSTRUCTIONS GIVEN TO SON, QUESTIONS ANSWERED REGARDING NEURO AND PCP FOLLOW UP.
== END 2025-08-19 18:03 | disposition home or self-care (01) ==
LOC: EDH 16:05
DX: S00.03XA Contusion of scalp, initial encounter (principal); G93.0 Cerebral cysts; E11.9 Type 2 diabetes mellitus without complications; E78.00 Pure hypercholesterolemia, unspecified; E03.9 Hypothyroidism, unspecified; I10 Essential (primary) hypertension; Z88.8 Allergy status to other drugs, medicaments and biological substances; Z79.899 Other long term (current) drug therapy; Z79.01 Long term (current) use of anticoagulants; Z79.890 Hormone replacement therapy; Z90.49 Acquired absence of other specified parts of digestive tract; Z90.710 Acquired absence of both cervix and uterus; W01.198A Fall on same level from slipping, tripping and stumbling with subsequent striking against other object, initial encounter; Y93.89 Activity, other specified; Y92.89 Other specified places as the place of occurrence of the external cause; Y99.8 Other external cause status
CPT/HCPCS: 70450; 99284